=== PATIENT | male | born 1965 | race Caucasian/White ===

== ENCOUNTER 2018-07-27 09:09 | Inpatient (IN) | payer BC ==
[2018-07-27] MEDS ORDERED: NALOXONE 0.4 MG/ML 1 ML VIAL IV PRN ×2 (10:07→15:20)
[2018-07-27] MEDS ORDERED: ONDANSETRON 4 MG/2 ML VIAL IVP PRN ×2 (10:07→15:20)
[2018-07-27] MEDS ORDERED: SODIUM CHLORIDE 0.9% 1,000 ML IV ONE ×2 (10:07→15:20)
--- NOTE | 2018-07-27 11:16 | XR ---
EXAMINATION TYPE: XR chest 2V DATE OF EXAM: 07/27/2018 COMPARISON: None HISTORY: 52 year-old male shortness of breath TECHNIQUE: PA and lateral views FINDINGS: Heart mildly enlarged. Aorta within normal limits. Diffuse interstitial and peribronchial opacities. No consolidation or pleural effusion. IMPRESSION: 1. Cardiomegaly. 2. Diffuse interstitial changes. Further clinical correlation recommended as to etiology. Some differ ential considerations include mild pulmonary vascular congestion (though no pleural effusions are pre sent), bronchitis, chronic asthma, atypical pneumonias, and interstitial pneumonitis.
[2018-07-27 11:24] LABS: ALT 62 U/L (21-72); AST 38 U/L (17-59); Albumin 3.3 g/dL (3.5-5.0); Alkaline Phosphatase 77 U/L (38-126); Anion Gap 2 mmol/L; Blood Urea Nitrogen 17 mg/dL (9-20); Calcium 9.1 mg/dL (8.4-10.2); Carbon Dioxide 36 mmol/L (22-30); Chloride 99 mmol/L (98-107); Glucose 67 mg/dL (74-99); Potassium 4.9 mmol/L (3.5-5.1); Sodium 137 mmol/L (137-145); Total Bilirubin 1.1 mg/dL (0.2-1.3)
[2018-07-27 11:41] LABS: Anisocytosis Slight; Basophils % (A) 0 %; Eosinophils # (A) 0.1 k/uL (0-0.7); Eosinophils % (A) 1 %; HGB 18.2 gm/dL (13.0-17.5); Hypochromasia Marked; Lymphocytes # (A) 1.3 k/uL (1.0-4.8); Lymphocytes % (A) 17 %; MCH 30.2 pg (25.0-35.0); MCHC 29.9 g/dL (31.0-37.0); MCV 100.9 fL (80.0-100.0); Macrocytosis Slight; Monocytes # (A) 0.6 k/uL (0-1.0); Monocytes % (A) 8 %; Neutrophils # (A) 5.8 k/uL (1.3-7.7); Neutrophils % (A) 73 %; Platelet Count 141 k/uL (150-450); RBC 6.01 m/uL (4.30-5.90); RDW 16.1 % (11.5-15.5); WBC 7.9 k/uL (3.8-10.6)
[2018-07-27 11:45] LABS: HCT 60.7 % (39.0-53.0)
--- NOTE | 2018-07-27 11:50 | ED ---
General Adult HPI <FredDioni - Last Filed: 07/27/18 15:11> - General Source: patient, family, RN notes reviewed Mode of arrival: wheelchair Limitations: no limitations <Hipolito Eastman - Last Filed: 07/27/18 15:23> - General Chief complaint: Abdominal Pain Stated complaint: Abd Pain Time Seen by Provider: 07/27/18 09:48 - History of Present Illness Initial comments: Patient 52-year-old male presented to the emergency room today with a chief complaint of increased abdominal pain. Patient does admit that over the last 3 weeks she's had increased pain and discomfort to the lower abdomen. Patient states that he's had increased swelling. He thought there was a hernia and feels that the swelling has dropped lower in the abdomen. Patient states is relatively pain-free. He does admit to some discomfort as did have certain positions. Patient does admit that he follow-up this family doctor today was advised coming here to the emergency room. Patient does admit to some chronic shortness of breath. States this is not new for him. He does admit to being a daily smoker. States been trying to quit. Patient denies any other complaints. Patient denies any recent fever, chills, chest pain, back pain, nausea or vomiting, numbness or tingling, dysuria or hematuria, constipation or diarrhea, headaches or visual changes, or any other complaints. (Hipolito Eastman) - Related Data Home Medications Medication Instructions Recorded Confirmed Albuterol Sulfate [Proair Hfa] 2 puff INHALATION RT-Q6H 07/27/18 07/27/18 Naproxen Sodium [Aleve] 220 mg PO DAILY 07/27/18 07/27/18 Phentermine HCl [Adipex-P] 37.5 mg PO DAILY 07/27/18 07/27/18 Triamterene-Hctz 37.5-25Mg 1 tab PO DAILY 07/27/18 07/27/18 [Maxzide 37.5-25] buPROPion HCL [buPROPion HCL SR] 150 mg PO DAILY 07/27/18 07/27/18 Allergies Allergy/AdvReac Type Severity Reaction Status Date / Time sulfamethoxazole Allergy Rash/Hives Verified 07/27/18 10:09 [From Bactrim] trimethoprim [From Bactrim] Allergy Rash/Hives Verified 07/27/18 10:09 venom-honey bee AdvReac Swelling Verified 07/27/18 10:09 Review of Systems ROS Other: All systems not noted in ROS Statement are negative. <IbarraDioni - Last Filed: 07/27/18 15:11> ROS Other: All systems not noted in ROS Statement are negative. <Hipolito Eastman - Last Filed: 07/27/18 15:23> ROS Statement: Those systems with pertinent positive or pertinent negative responses have been documented in the HPI. Past Medical History Past Medical History: Asthma History of Any Multi-Drug Resistant Organisms: None Reported Past Surgical History: Hernia Repair, Tonsillectomy Additional Past Surgical History / Comment(s): Partial Bowel Rsection Past Psychological History: No Psychological Hx Reported Smoking Status: Current every day smoker Past Alcohol Use History: None Reported Past Drug Use History: None Reported <Hipolito Eastman - Last Filed: 07/27/18 15:23> General Exam <Dioni Ibarra - Last Filed: 07/27/18 15:11> Limitations: no limitations <Hipolito Eastman - Last Filed: 07/27/18 15:23> - General Exam Comments Initial Comments: General: The patient is awake and alert, in no distress, and does not appear acutely ill. Eye: There is normal conjunctiva bilaterally. No signs of icterus. Ears, nose, mouth and throat: There are moist mucous membranes and no oral lesions. Neck: The neck is supple, there is no tenderness or JVD. Cardiovascular: There is a regular rate and rhythm. No murmur, rub or gallop is appreciated. Respiratory: Lungs are clear to auscultation, respirations are non-labored, breath sounds are equal. No wheezes, stridor, rales, or rhonchi. Gastrointestinal: Abdomen soft on palpation. No specific tenderness. No rebound, guarding or CVA tenderness. Musculoskeletal: Normal ROM, no tenderness. Neurological: A&O x 3. CN II-XII intact, There are no obvious motor or sensory deficits. Coordination appears grossly intact. Speech is normal. Skin: Skin is warm and dry and no rashes or lesions are noted. Psychiatric: Cooperative, appropriate mood & affect, normal judgment. (Hipolito Eastman) Vital Signs 07/27/18 07/27/18 07/27/18 09:19 11:00 11:30 Temperature 98.6 F Pulse Rate 109 H 104 H 87 Respiratory 20 7 L 20 Rate Blood Pressure 160/66 116/75 116/75 O2 Sat by Pulse 94 L 89 L 90 L Oximetry 07/27/18 07/27/18 07/27/18 12:34 13:00 14:00 Temperature 98.2 F Pulse Rate 99 Respiratory 20 22 Rate Blood Pressure 109/63 O2 Sat by Pulse 93 L 93 L 93 L Oximetry EKG Findings - EKG Comments: EKG Findings:: EKG performed at 1046: Shows normal sinus rhythm at 100 bpm. IL interval 154. QRS 126. QT/QTC 368/474. No acute ST changes. <Hipolito Eastman - Last Filed: 07/27/18 15:23> Medical Decision Making - Lab Data Result diagrams: 07/27/18 10:55 07/27/18 10:55 <Dioni Ibarra - Last Filed: 07/27/18 15:11> - Lab Data Result diagrams: 07/27/18 10:55 07/27/18 10:55 <Hipolito Eastman - Last Filed: 07/27/18 15:23> - Medical Decision Making Case was discussed with Dr. Rodríguez, who will admit covering for Dr. barone. He does request Doppler ultrasound and VQ scan as well as surgical consult Dr. Alfonso. (Dioni Ibarra) Patient's a 52-year-old male presented to the emergency room today with chief complaint of increased abdominal discomfort. Patient labs reviewed. He did admit to some shortness of breath and did have pulse ox here in the emergency room at 89%. Patient was placed on oxygen. Patient has a history of COPD. Patient's d-dimer was elevated. CT to rule out PE was performed. No large PE can be seen but could not exclude something smaller. Patient's CT the abdomen and pelvis is reviewed and shows a large wall hernia consisting of the small colon in partial large colon. No evidence for obstruction. There is diffuse anasarca. Patient had a BNP greater than 1000. Patient abdomen is soft nontender. Is resting comfortably. Case discussed with attending physician Dr. Ibarra who did discuss with admitting physician Dr. Rodríguez who does recommend bilateral Doppler ultrasound and VQ scan. Surgeon on-call will be consult patient admitted to the hospital. (Hipolito Eastman) - Lab Data Lab Results 07/27/18 07/27/18 07/27/18 Range/Units 10:55 10:55 10:55 WBC 7.9 (3.8-10.6) k/uL RBC 6.01 H (4.30-5.90) m/uL Hgb 18.2 H (13.0-17.5) gm/dL Hct 60.7 H* (39.0-53.0) % MCV 100.9 H (80.0-100.0) fL MCH 30.2 (25.0-35.0) pg MCHC 29.9 L (31.0-37.0) g/dL RDW 16.1 H (11.5-15.5) % Plt Count 141 L (150-450) k/uL Neutrophils % 73 % Lymphocytes % 17 % Monocytes % 8 % Eosinophils % 1 % Basophils % 0 % Neutrophils # 5.8 (1.3-7.7) k/uL Lymphocytes # 1.3 (1.0-4.8) k/uL Monocytes # 0.6 (0-1.0) k/uL Eosinophils # 0.1 (0-0.7) k/uL Basophils # 0.0 (0-0.2) k/uL Hypochromasia Marked Anisocytosis Slight Macrocytosis Slight PT (9.0-12.0) sec INR (<1.2) APTT (22.0-30.0) sec D-Dimer (<0.60) mg/L FEU Sodium 137 (137-145) mmol/L Potassium 4.9 (3.5-5.1) mmol/L Chloride 99 (98-107) mmol/L Carbon Dioxide 36 H (22-30) mmol/L Anion Gap 2 mmol/L BUN 17 (9-20) mg/dL Creatinine 0.72 (0.66-1.25) mg/dL Est GFR (CKD-EPI)AfAm >90 (>60 ml/min/1.73 sqM) Est GFR (CKD-EPI)NonAf >90 (>60 ml/min/1.73 sqM) Glucose 67 L (74-99) mg/dL Calcium 9.1 (8.4-10.2) mg/dL Total Bilirubin 1.1 (0.2-1.3) mg/dL AST 38 (17-59) U/L ALT 62 (21-72) U/L Alkaline Phosphatase 77 (38-126) U/L Total Creatine Kinase 54 L (55-170) U/L CK-MB (CK-2) 2.2 (0.0-2.4) ng/mL CK-MB (CK-2) Rel Index 4.1 Troponin I 0.012 (0.000-0.034) ng/mL NT-Pro-B Natriuret Pep pg/mL Total Protein 6.0 L (6.3-8.2) g/dL Albumin 3.3 L (3.5-5.0) g/dL 07/27/18 07/27/18 Range/Units 10:55 12:02 WBC (3.8-10.6) k/uL RBC (4.30-5.90) m/uL Hgb (13.0-17.5) gm/dL Hct (39.0-53.0) % MCV (80.0-100.0) fL MCH (25.0-35.0) pg MCHC (31.0-37.0) g/dL RDW (11.5-15.5) % Plt Count (150-450) k/uL Neutrophils % % Lymphocytes % % Monocytes % % Eosinophils % % Basophils % % Neutrophils # (1.3-7.7) k/uL Lymphocytes # (1.0-4.8) k/uL Monocytes # (0-1.0) k/uL Eosinophils # (0-0.7) k/uL Basophils # (0-0.2) k/uL Hypochromasia Anisocytosis Macrocytosis PT 11.1 (9.0-12.0) sec INR 1.1 (<1.2) APTT 25.1 (22.0-30.0) sec D-Dimer 0.76 H (<0.60) mg/L FEU Sodium (137-145) mmol/L Potassium (3.5-5.1) mmol/L Chloride (98-107) mmol/L Carbon Dioxide (22-30) mmol/L Anion Gap mmol/L BUN (9-20) mg/dL Creatinine (0.66-1.25) mg/dL Est GFR (CKD-EPI)AfAm (>60 ml/min/1.73 sqM) Est GFR (CKD-EPI)NonAf (>60 ml/min/1.73 sqM) Glucose (74-99) mg/dL Calcium (8.4-10.2) mg/dL Total Bilirubin (0.2-1.3) mg/dL AST (17-59) U/L ALT (21-72) U/L Alkaline Phosphatase (38-126) U/L Total Creatine Kinase (55-170) U/L CK-MB (CK-2) (0.0-2.4) ng/mL CK-MB (CK-2) Rel Index Troponin I (0.000-0.034) ng/mL NT-Pro-B Natriuret Pep 1040 pg/mL Total Protein (6.3-8.2) g/dL Albumin (3.5-5.0) g/dL Disposition <Dioni Ibarra - Last Filed: 07/27/18 15:11> Is patient prescribed a controlled substance at d/c from ED?: No Time of Disposition: 15:17 <Hipolito Eastman - Last Filed: 07/27/18 15:23> Clinical Impression: Abdominal wall hernia, Elevated brain natriuretic peptide (BNP) level, Anasarca , SOB (shortness of breath), Hypoxia Disposition: ADMITTED IP TO THIS HOSP Condition: Stable Referrals: Junaid Dubon MD [Primary Care Provider] - 1-2 days
[2018-07-27 12:03] LABS: Creatine Kinase MB 2.2 ng/mL (0.0-2.4); Troponin I 0.012 ng/mL (0.000-0.034)
[2018-07-27 12:57] LABS: INR 1.1 (<1.2)
[2018-07-27 13:26] LABS: Partial Thromboplastin Time 25.1 sec (22.0-30.0); Prothrombin Time 11.1 sec (9.0-12.0)
[2018-07-27 13:27] LABS: D-Dimer 0.76 mg/L FEU (<0.60)
--- NOTE | 2018-07-27 14:20 | CT ---
EXAMINATION TYPE: CT angio chest DATE OF EXAM: 07/27/2018 COMPARISON: None HISTORY: 52-year-old male with SOB TECHNIQUE: Contiguous axial scanning of the chest performed with IV Contrast, patient injected with 1 00 mL of Isovue 370. Coronal/sagittal MIP reconstructions performed. CT DLP: 890.7 mGycm Automated exposure control for dose reduction was used. FINDINGS: Heart borderline enlarged without pericardial effusion. Coronary vessel calcifications are present. T here is no flattening of the interventricular septum or reflux of contrast into the hepatic veins. Aorta normal caliber with conventional arch vessel branching anatomy. Mildly enlarged 1.5 cm right hilar lymph node and mildly enlarged 1.3 cm left hilar lymph node. Proba nickolas reactive/post inflammatory. Mildly enlarged caliber to the main right and left pulmonary arteries at 2.6 cm each suggesting possi ble pulmonary arterial hypertension. There is excessive motion artifacts at some levels limiting assessment for pulmonary embolus. No larg e central or lobar pulmonary embolus. No definite pulmonary embolus to the proximal segmental level. Many of the remaining segmental and more distal arterial branches are nondiagnostic. Prominent paraseptal and centrilobular emphysema throughout the lungs. Dependent atelectasis at the l loly bases demonstrate areas of scarring or atelectasis Abdomen reported separately. Bones: Endplate spondylosis mid to lower thoracic spine. IMPRESSION: 1. SOME RESPIRATORY MOTION ARTIFACT LIMITING ASSESSMENT. NO DEFINITE PULMONARY EMBOLUS TO THE PROXIMA L SEGMENTAL LEVEL. MANY OF THE REMAINING SEGMENTAL AND MORE DISTAL ARTERIAL BRANCHES ARE NONDIAGNOSTI C AND EMBOLI IN THESE LOCATIONS CANNOT BE RELIABLY EXCLUDED ON THE BASIS OF THIS EXAM. 2. CARDIOMEGALY, CAD. 3. COPD WITH BOTH CENTRILOBULAR AND PARASEPTAL EMPHYSEMA, MODERATE TO ADVANCED. PULMONARY ARTERIAL HY PERTENSION. 4. ABDOMEN REPORTED SEPARATELY.
--- NOTE | 2018-07-27 14:50 | CT ---
EXAMINATION TYPE: CT abdomen pelvis w con DATE OF EXAM: 07/27/2018 COMPARISON: 01/02/2011 HISTORY: 52-year-old male Hernia, SOB TECHNIQUE: Contiguous axial scanning of the abdomen and pelvis following administration of 100 ml Iso sheri 370 IV contrast. Coronal/sagittal reconstructions performed. Large patient body habitus overload ed and shut down the tube. CT DLP: 2556.0 mGycm Automated exposure control for dose reduction was used. FINDINGS: Heart upper limits of normal in size. Strandy atelectasis in the lower lungs. There are emphysematous changes noted. There is diffuse heterogeneous enhancement of the liver suggesting diffuse nonspecific hepatocellular disease. Mild perihepatic ascites is noted. The liver itself measures upper limits of normal at 17.0 cm. Portal venous system is patent Mild hydropic gallbladder and 4.4 cm. There may be mild wall thickening as well. Adrenal glands, kidneys, spleen, and pancreas appear within normal limits. No dilated small bowel, free fluid, or free air. Anasarca type changes present throughout the subcuta neous tissues and intra-abdominal fat. Redemonstrated massive ventral abdominal wall hernia. The hernia measures 13.4 cm wide and 14.0 cm craniocaudal with the hernia contents containing nearly the entire small bowel and its mesentery. The hernia also includes the distal third transverse colon. The main transverse colon comes back into the intra-abdominal cavity but then the ascending colon ag ain extends into there are hernia. This shows marked intervertebral enlargement as compared to 2010. The majority of the hernia sac is not evaluated as it is outside of the field of view. Bladder partially distended. No abnormal fluid collection the pelvis. No pelvic lymphadenopathy seen. Strandy edema within the pelvis. Bones: Degenerative changes of the hips and throughout the lumbar spine. IMPRESSION: 1. MASSIVE VENTRAL ABDOMINAL WALL HERNIA WITH THE NECK OF THE HERNIA MEASURING 13.4 X 14.0 CM. NEARLY THE ENTIRE SMALL BOWEL AND ITS MESENTERY HAS HERNIATED THROUGH WELL THE RIGHT SIDE OF THE COLO N AND THE DISTAL TRANSVERSE COLON. THE HERNIA IS SO LARGE THAT IT EXTENDS OUTSIDE THE FIELD OF VIEW A ND ONLY A SMALL PORTION OF IT IS VISUALIZED. 2. DIFFUSE ANASARCA TYPE CHANGES SUGGESTED. NO EVIDENCE FOR BOWEL OBSTRUCTION. NO FREE AIR WITHIN THE INTRA-ABDOMINAL SPACE. 3. DIFFUSE HEPATOCELLULAR DISEASE CHARACTERIZED BY DIFFUSE HETEROGENEOUS ENHANCEMENT. FURTHER CLINICA L CORRELATION RECOMMENDED SUCH FOR HEPATITIS. 4. HYDROPIC GALLBLADDER. THERE MAY BE MILD WALL THICKENING WELL. THIS COULD BE SECONDARY TO FASTIN G AND FLUID OVERLOAD STATE. IF CONCERN FOR EARLY ACUTE CHOLECYSTITIS, FOLLOW-UP ULTRASOUND OR UNIQUE JUSTICE.
[2018-07-27] MEDS ORDERED: IPRATROPIUM-ALBUTEROL 3 ML NEB INHALATION PRN (15:19)
--- NOTE | 2018-07-27 16:36 | US ---
EXAMINATION TYPE: US venous doppler duplex LE DATE OF EXAM: 07/27/2018 4:22 PM COMPARISON: NONE CLINICAL HISTORY: 52-year-old male Pain. Morbidly obese patient with leg swelling, upper thigh rash SIDE PERFORMED: Bilat TECHNIQUE: The lower extremity deep venous system is examined utilizing real time linear array sonog jerry with graded compression, doppler sonography and color-flow sonography. FINDINGS: VESSELS IMAGED: External Iliac Vein (EIV) Common Femoral Vein Deep Femoral Vein Greater Saphenous Vein * Femoral Vein Popliteal Vein Small Saphenous Vein * Proximal Calf Veins (* superficial vessels) [employer] [place] notes:very firm pannus that extends to mid thighs, unable to get underneath, limited ex am Right Leg: From mid fv down through calf veins appears negative for DVT Left Leg: From mid fv down through calf veins appears negative for DVT IMPRESSION: Large patient pannus precludes assessment of the upper thighs. No evidence for DVT within the bilater al lower extremities imaged from the mid femoral veins down into the upper calf. The proximal thighs are not assessed.
[2018-07-27 17:12] VITALS: BMI 54.5
[2018-07-27] MEDS ORDERED: ALBUTEROL NEBULIZED 2.5 MG/3 ML INHALATION SCH (20:00)
[2018-07-28] MEDS: methylPREDNISolone SOD SUCCI 40 MG/ML 1 ML VIAL IV SCH ×3 (01:28→17:05)
--- NOTE | 2018-07-28 02:35 | HP ---
HISTORY AND PHYSICAL DATE OF ADMISSION: July 27, 2018 DATE OF SERVICE: July 27, 2018. PRESENTING COMPLAINT: Short of breath. Large abdomen. HISTORY OF PRESENTING COMPLAINT: This is a 52-year-old patient who follows with Dr. Dubon out of [place]. The patient has a history of asthma, long-standing smoker, abdominal wall hernia. The patient's abdominal wall hernia has been progressively getting worse to the point it is becoming extremely large, like a pannus to the mid thighs. Finding it difficult for patient to get about. The patient still actively works. The patient also long- standing smoker, he gets short of breath, congestion, cough, bringing up sputum, mucus. The patient also got edema. No chest pain. Sitting at the edge of bed, rather short of breath. The patient saw his family doctor who sent him in for his hernia. The patient has no abdominal pain. No nausea, vomiting, able to tolerate his diet. The patient states he has a little bit less control of his anal sphincter. REVIEW OF SYSTEMS: CONSTITUTIONAL: Tired. HEENT: Nasal stuffiness. RESPIRATORY: As above. CARDIOVASCULAR: As above. GASTROINTESTINAL: As above. GENITOURINARY none. MUSCULOSKELETAL: Arthritic pain in the joints. DERMATOLOGICAL: Some discoloration of the toes. HEMATOLOGICAL: None. LYMPHATICS: None. PSYCHIATRIC: None. NEUROLOGICAL: None. PAST MEDICAL HISTORY: Asthma. PAST SURGICAL HISTORY: Hernia repair, tonsillectomy, partial small-bowel resection. SOCIAL HISTORY: Lives with daughter, son. 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 No alcohol. Smoked an average of a pack and a half last 35 years, now trying to cut back. FAMILY HISTORY: Reviewed, noncontributory to presentation. HOME MEDICATIONS: 1. Wellbutrin SR 150 mg a day. 2. Maxzide 37.5/25 1 tablet p.o. daily. 3. Adipex-P 37.5 p.o. daily. 4. Aleve 220 mg p.o. daily. 5. ProAir HFA 2 puffs q.6h p.r.n. ALLERGIES: TO BACTRIM, VENOM HONEY BEE. PHYSICAL EXAMINATION: VITAL SIGNS: On examination, vital signs on presentation temperature 98.6, pulse 109, respiration 20, blood pressure 160/56, pulse ox 94 percent on room air. GENERAL APPEARANCE: Morbidly obese, BMI 54.5. Sitting at the edge of bed. Short of breath at rest. EYES: Pupils equal. Conjunctivae normal. HEENT external appearance of nose and ears normal. Oral cavity normal. NECK: JVD unable to assess. Mass not palpable. RESPIRATORY: Effort increased. LUNGS: Diminished breath sounds. Prolonged expiration and wheezing. CARDIOVASCULAR: Heart sounds muffled. Edema present. ABDOMEN: Very large, distended, pendulous with abdominal wall edema. Some scar tissue is present. Scarring is present. Liver and spleen not palpable. LYMPHATICS: No lymph nodes palpable in the neck and axilla. PSYCHIATRY: Alert and oriented x3. Mood and affect normal. NEUROLOGICAL: Pupils equal. Cranial nerves grossly intact. Power and sensation grossly intact. INVESTIGATIONS: White count 7.9, hemoglobin 8.2, platelets 141, potassium 4.9, BUN 17, creatinine 0.72. ProBNP 1040. Troponin 0.012. Venous Doppler negative for DVT. EKG tracing personally reviewed by me shows some nonspecific ST-segment changes. Chest CTA shows enlarged prominent pulmonary arteries and evidence of centrilobular emphysema. Abdominal pelvis CT shows some evidence of hepatocellular disease, massive ventral abdominal hernia with the neck of the hernia nearly 14 x 14 cm with entire small bowel in his mesentery herniated through the wall, diffuse anasarca type changes, hydrops gallbladder. ASSESSMENT: 1. Acute chronic obstructive pulmonary disease exacerbation in a current smoker. 2. Chronic nicotine dependence. Patient is a long-standing cigarette smoker. 3. Morbid obesity, BMI 54.5. 4. Very large ventral abdominal hernia with the large mouth with no evidence of obstruction which patient has neglected for a long time time. 5. Possible cor pulmonale, acute on chronic. 6. Secondary polycythemia, likely from chronic hypoxia in the setting of longstanding cigarette smoker. PLAN: Patient is started on q4 nebulized bronchodilators, IV and inhaled steroids. We will check the patient's arterial blood gases on room air. Oxygen will be supplemented accordingly. We will also do a 2D echocardiogram today to evaluate pulmonary hypertension. Consultation will be made to Dr. Alfonso and Pulmonary. Care was discussed with the patient at length. Smoking cessation was counseling and patient will be given a nicotine patch. More than 3 minutes was spent on this aspect of the case. Given patient's poor functional status right now and of course patient abdominal ventral hernia extremely large, we may have to wait for a while before any surgery can be thought of. We will let the surgeon make the final determination about the same. Care was discussed in length with the patient. Copy to Eliseo Krause. MMODL / IJN: [id number] /
[2018-07-28] MEDS: IPRATROPIUM-ALBUTEROL 3 ML NEB INHALATION SCH ×5 (03:20→19:10)
[2018-07-28 07:49] LABS: Glucose,Whole Blood 112 mg/dL (75-99)
[2018-07-28] MEDS: BUDESONIDE 1 MG/2 ML NEBU INHALATION SCH ×2 (07:54→19:09)
[2018-07-28 08:03] LABS: Basophils % (A) 0 %; Eosinophils % (A) 1 %; Hypochromasia Marked; Lymphocytes # (A) 0.6 k/uL (1.0-4.8); Lymphocytes % (A) 9 %; MCH 30.1 pg (25.0-35.0); MCHC 29.1 g/dL (31.0-37.0); MCV 103.5 fL (80.0-100.0); Macrocytosis Moderate; Mean Platelet Volume 7.7; Monocytes # (A) 0.2 k/uL (0-1.0); Monocytes % (A) 3 %; Neutrophils # (A) 5.7 k/uL (1.3-7.7); Neutrophils % (A) 86 %; Platelet Count 120 k/uL (150-450); RDW 15.9 % (11.5-15.5); WBC 6.6 k/uL (3.8-10.6)
[2018-07-28] MEDS: buPROPion SR 150 MG TABLET.ER PO SCH (08:05)
[2018-07-28] MEDS: INSULIN ASPART (NovoLOG) 100 UNIT/ML VIAL SQ SCH ×4 (08:05→20:52)
[2018-07-28] MEDS: ENOXAPARIN 40 MG/0.4 ML SYRINGE SQ SCH (08:06)
[2018-07-28] MEDS: NICOTINE 14MG/24HR PATCH TRANSDERM SCH (08:06)
[2018-07-28 08:07] LABS: HCT 65.2 % (39.0-53.0)
[2018-07-28] MEDS: PATIENT'S OWN MED (Phentermine Hcl [Adipex-P] 37.5 MG) PO SCH (08:07)
[2018-07-28] MEDS ORDERED: FUROSEMIDE 10 MG/ML 4 ML VIAL IV SCH (09:00)
[2018-07-28] MEDS ORDERED: TRIAMTERENE-HCTZ 37.5-25MG 1 EACH TAB PO SCH (09:00)
[2018-07-28 10:10] LABS: ALT 67 U/L (21-72); AST 37 U/L (17-59); Albumin 3.6 g/dL (3.5-5.0); Alkaline Phosphatase 94 U/L (38-126); Anion Gap 5 mmol/L; Blood Urea Nitrogen 17 mg/dL (9-20); Calcium 9.7 mg/dL (8.4-10.2); Carbon Dioxide 36 mmol/L (22-30); Chloride 97 mmol/L (98-107); Glucose 159 mg/dL (74-99); Potassium 5.8 mmol/L (3.5-5.1); Sodium 138 mmol/L (137-145); Total Bilirubin 1.4 mg/dL (0.2-1.3); Total Protein 6.5 g/dL (6.3-8.2)
--- NOTE | 2018-07-28 11:27 | NM ---
EXAMINATION TYPE: NM pul vent and perfuse DATE OF EXAM: 07/28/2018 COMPARISON: NONE HISTORY: Shortness of breath TECHNIQUE: Utilizing inhalation of 67.8 mCi Tc 99m DTPA aerosol and intravenous injection of 5.17 mC i of Tc 99m MAA, ventilation and perfusion images are acquired post injection in multiple projections . FINDINGS: Noted are few matched ventilation/perfusion defects. Central accumulation of radiotracer on ventilati on portion of the study compatible with COPD. No perfusion mismatch. IMPRESSION: Low probability for pulmonary embolism.
[2018-07-28 11:36] LABS: Glucose,Whole Blood 134 mg/dL (75-99)
--- NOTE | 2018-07-28 13:05 | P.GSCN ---
History of Present Illness Consult date: 07/28/18 Reason for Consult: Abdominal wall hernia History of present illness: CHIEF COMPLAINT: SOB HISTORY OF PRESENT ILLNESS: 52-year-old male who presented to the emergency room due to shortness of breath and increased swelling. General surgery was consulted for abdominal wall hernia. Patient was found to have a massive ventral abdominal wall hernia. Patient states he has had this for many years but it has slowly increased in size. He currently denies abdominal pain. He does complain of discomfort due to the size of his abdomen resting on his legs. Denies nausea or vomiting. Denies constipation or diarrhea. PAST MEDICAL HISTORY: See list. PAST SURGICAL HISTORY: See list. MEDICATIONS: See list. ALLERGIES: See list. SOCIAL HISTORY: No illicit drug use. REVIEW OF SYSTEMS: CONSTITUTIONAL: Denies fever or chills. HEENT: Denies blurred vision, vision changes, or eye pain. Denies hemoptysis ENDOCRINE: Denies heat or cold intolerance. CARDIOVASCULAR: Denies chest pain or pressure. RESPIRATORY: Reports shortness of breath. GASTROINTESTINAL: Denies abdominal pain. Denies nausea or vomiting. NEURO: Denies history of seizures. PSYCH: No depression or suicidal ideation HEMATOLOGIC: Denies bleeding disorders. LYMPHATIC: The patient denies any lumps and bumps around the neck. GENITOURINARY: Denies any blood in urine or increased urinary frequency. MUSCULOSKELETAL: Denies myalgias. Denies joint swelling. Denies decreased range of motion beyond patients baseline. SKIN: Denies pruitis. Denies rash. PHYSICAL EXAM: VITAL SIGNS: Currently stable. GENERAL: Well-developed in no acute distress. HEENT: No sclera icterus. Extraocular movements grossly intact. Moist buccal mucosa. Head is atraumatic, normocephalic. Hears conversational speech. No nasal drainage. NECK: Supple without lymphadenopathy. CHEST: Non-labored respirations and equal bilateral excursions. CARDIOVASCULAR: Regular rate with regular rhythm. Palpable 2+ radial pulses. ABDOMEN: Obese. Massive abdominal wall hernia present. No pain on palpation. MUSCULOSKELETAL: No clubbing, cyanosis or edema. NEUROLOGIC: No focal or lateralizing signs. Cranial nerves II through XII grossly intact. PSYCH: Appropriate affect. Alert and oriented to person, place and time. SKIN: Well perfused. Good skin turgor. IMAGING: CT abdomen and pelvis: Massive ventral abdominal wall hernia with the neck of the hernia measuring 13.4 x 14 cm. The entire small bowel and its mesentery has herniated through as well as the right side of the colon and distal transverse colon. The hernia so large it extends outside the field of view and only has a small portion of the visualized. ASSESSMENT: 1. Massive ventral abdominal wall hernia PLAN: Patient is currently stable from a surgical standpoint. Patient will require evaluation at a tertiary center for repair of hernia when medically stable. Patient advised no surgical intervention will be performed at this facility. Nurse practitioner note has been reviewed by physician. Signing provider agrees with the documented findings, assessment, and plan of care. Past Medical History Past Medical History: Asthma History of Any Multi-Drug Resistant Organisms: None Reported Past Surgical History: Hernia Repair, Tonsillectomy Additional Past Surgical History / Comment(s): Partial Bowel Rsection Past Psychological History: No Psychological Hx Reported Smoking Status: Current every day smoker Past Alcohol Use History: None Reported Past Drug Use History: None Reported Medications and Allergies Home Medications Medication Instructions Recorded Confirmed Type Albuterol Sulfate [Proair Hfa] 2 puff INHALATION RT-Q6H 07/27/18 07/27/18 History Naproxen Sodium [Aleve] 220 mg PO DAILY 07/27/18 07/27/18 History Phentermine HCl [Adipex-P] 37.5 mg PO DAILY 07/27/18 07/27/18 History Triamterene-Hctz 37.5-25Mg 1 tab PO DAILY 07/27/18 07/27/18 History [Maxzide 37.5-25] buPROPion HCL [buPROPion HCL SR] 150 mg PO DAILY 07/27/18 07/27/18 History Allergies Allergy/AdvReac Type Severity Reaction Status Date / Time sulfamethoxazole Allergy Rash/Hives Verified 07/27/18 10:09 [From Bactrim] trimethoprim [From Bactrim] Allergy Rash/Hives Verified 07/27/18 10:09 venom-honey bee AdvReac Swelling Verified 07/27/18 10:09 Surgical - Exam Vital Signs Temp Pulse Resp BP Pulse Ox 98.6 F 109 H 20 160/66 94 L 07/27/18 09:19 07/27/18 09:19 07/27/18 09:19 07/27/18 09:19 07/27/18 09:19 Results - Labs 07/28/18 06:21 07/28/18 09:08 Abnormal Lab Results - Last 24 Hours (Table) 07/27/18 07/28/18 07/28/18 Range/Units 12:02 06:21 07:47 RBC 6.30 H (4.30-5.90) m/uL Hgb 19.0 H (13.0-17.5) gm/dL Hct 65.2 H* (39.0-53.0) % MCV 103.5 H (80.0-100.0) fL MCHC 29.1 L (31.0-37.0) g/dL RDW 15.9 H (11.5-15.5) % Plt Count 120 L (150-450) k/uL Lymphocytes # 0.6 L (1.0-4.8) k/uL D-Dimer 0.76 H (<0.60) mg/L FEU Potassium (3.5-5.1) mmol/L Chloride (98-107) mmol/L Carbon Dioxide (22-30) mmol/L Glucose (74-99) mg/dL POC Glucose (mg/dL) 112 H (75-99) mg/dL Total Bilirubin (0.2-1.3) mg/dL 07/28/18 07/28/18 Range/Units 09:08 11:29 RBC (4.30-5.90) m/uL Hgb (13.0-17.5) gm/dL Hct (39.0-53.0) % MCV (80.0-100.0) fL MCHC (31.0-37.0) g/dL RDW (11.5-15.5) % Plt Count (150-450) k/uL Lymphocytes # (1.0-4.8) k/uL D-Dimer (<0.60) mg/L FEU Potassium 5.8 H (3.5-5.1) mmol/L Chloride 97 L (98-107) mmol/L Carbon Dioxide 36 H (22-30) mmol/L Glucose 159 H (74-99) mg/dL POC Glucose (mg/dL) 134 H (75-99) mg/dL Total Bilirubin 1.4 H (0.2-1.3) mg/dL Diabetes panel 07/28/18 Range/Units 09:08 Sodium 138 (137-145) mmol/L Potassium 5.8 H (3.5-5.1) mmol/L Chloride 97 L (98-107) mmol/L Carbon Dioxide 36 H (22-30) mmol/L BUN 17 (9-20) mg/dL Creatinine 0.78 (0.66-1.25) mg/dL Glucose 159 H (74-99) mg/dL Calcium 9.7 (8.4-10.2) mg/dL AST 37 (17-59) U/L ALT 67 (21-72) U/L Alkaline Phosphatase 94 (38-126) U/L Total Protein 6.5 (6.3-8.2) g/dL Albumin 3.6 (3.5-5.0) g/dL Calcium panel 07/28/18 Range/Units 09:08 Calcium 9.7 (8.4-10.2) mg/dL Albumin 3.6 (3.5-5.0) g/dL Pituitary panel 07/28/18 Range/Units 09:08 Sodium 138 (137-145) mmol/L Potassium 5.8 H (3.5-5.1) mmol/L Chloride 97 L (98-107) mmol/L Carbon Dioxide 36 H (22-30) mmol/L BUN 17 (9-20) mg/dL Creatinine 0.78 (0.66-1.25) mg/dL Glucose 159 H (74-99) mg/dL Calcium 9.7 (8.4-10.2) mg/dL Adrenal panel 07/28/18 Range/Units 09:08 Sodium 138 (137-145) mmol/L Potassium 5.8 H (3.5-5.1) mmol/L Chloride 97 L (98-107) mmol/L Carbon Dioxide 36 H (22-30) mmol/L BUN 17 (9-20) mg/dL Creatinine 0.78 (0.66-1.25) mg/dL Glucose 159 H (74-99) mg/dL Calcium 9.7 (8.4-10.2) mg/dL Total Bilirubin 1.4 H (0.2-1.3) mg/dL AST 37 (17-59) U/L ALT 67 (21-72) U/L Alkaline Phosphatase 94 (38-126) U/L Total Protein 6.5 (6.3-8.2) g/dL Albumin 3.6 (3.5-5.0) g/dL
[2018-07-28 13:50] LABS: ABG Base Excess 14.1 mmol/L; ABG HCO3 39 mmol/L (21-25); ABG Oxygen Saturation 89.8 % (94-97); ABG PCO2 67 mmHg (35-45); ABG PH 7.38 (7.35-7.45); ABG TCO2 41 mmol/L (19-24)
[2018-07-28 13:51] LABS: ABG PO2 54 mmHg (83-108)
[2018-07-28 16:52] LABS: Glucose,Whole Blood 134 mg/dL (75-99)
--- NOTE | 2018-07-28 17:49 | P.CNPUL ---
History of Present Illness Consult date: 07/28/18 Reason for consult: dyspnea, cough, COPD, hypoxemia, pulmonary hypertension, obstructive sleep apnea Chief complaint: Shortness of breath History of present illness: 52-year-old morbidly obese male who was seen eval reexamined on fourth floor with ongoing problems associated with shortness of breath patient has a very large anterior abdominal wall ventral hernia, surgery has been following this patient, this patient has a significant issues associated with erythrocytosis hypoxia and the sleepiness likely has sleep disorder breathing and sleep apnea does have a history of snoring patient has ongoing tremors intermittent confusion as well, review of the data revealed that patient has a hypoxic hypercapnic respiratory failure with CO2 of 67 pH was normal pO2 was only 54 on 4 L oxygen, white cell count is normal however hemoglobin is on the higher range of 19 and 65 hematocrit likely associated with bone marrow stimulation related chronic hypoxia, I have discussed with the staff to initiate patient on BiPAP 10 and 5 with supplemental oxygen to be used each night and when necessary during the day, his admitted chest x-ray revealed cardiomegaly interstitial edema and prominent interstitium, computed tomography scan of the abdomen revealed massive ventral hernia neck of the hernia is about 14 cm, Antara small bowel and mesentery has a herniated, with some portion of the colon , diffuse anasarca has been noted, no bowel obstruction or free air has been noted, some hepatocellular changes in the liver has been noted, and large gallbladder, computed tomography scan of the chest revealed pulmonary vasculature prominence likely pulmonary hypertension, centrilobular and paraseptal emphysema is noted, cardiomegaly has been noted along with evidence of coronary artery disease, no pulmonary embolism seen duplex ultrasound of the lower extremity both are negative for deep venous thrombosis, VQ scan revealed low probability for PE Review of Systems All systems: negative Past Medical History Past Medical History: Asthma History of Any Multi-Drug Resistant Organisms: None Reported Past Surgical History: Hernia Repair, Tonsillectomy Additional Past Surgical History / Comment(s): Partial Bowel Rsection Past Psychological History: No Psychological Hx Reported Smoking Status: Current every day smoker Past Alcohol Use History: None Reported Past Drug Use History: None Reported Medications and Allergies Home Medications Medication Instructions Recorded Confirmed Type Albuterol Sulfate [Proair Hfa] 2 puff INHALATION RT-Q6H 07/27/18 07/27/18 History Naproxen Sodium [Aleve] 220 mg PO DAILY 07/27/18 07/27/18 History Phentermine HCl [Adipex-P] 37.5 mg PO DAILY 07/27/18 07/27/18 History Triamterene-Hctz 37.5-25Mg 1 tab PO DAILY 07/27/18 07/27/18 History [Maxzide 37.5-25] buPROPion HCL [buPROPion HCL SR] 150 mg PO DAILY 07/27/18 07/27/18 History Allergies Allergy/AdvReac Type Severity Reaction Status Date / Time sulfamethoxazole Allergy Rash/Hives Verified 07/27/18 10:09 [From Bactrim] trimethoprim [From Bactrim] Allergy Rash/Hives Verified 07/27/18 10:09 venom-honey bee AdvReac Swelling Verified 07/27/18 10:09 Physical Exam Vitals: Vital Signs Temp Pulse Pulse Resp BP Pulse Ox 07/28/18 15:34 98 07/28/18 15:22 100 94 L 07/28/18 15:00 98.4 F 106 H 18 128/70 91 L 07/28/18 12:25 104 H 18 07/28/18 12:15 101 H 18 07/28/18 08:09 104 H 07/28/18 07:55 108 H 20 90 L 07/28/18 07:10 20 07/28/18 07:00 98.5 F 110 H 18 126/68 90 L 07/28/18 03:30 108 H 07/28/18 03:20 110 H 07/27/18 23:00 98.1 F 106 H 18 119/82 93 L 07/27/18 21:20 93 L 07/27/18 19:55 93 L 07/27/18 19:40 112 H 90 L 07/27/18 19:33 98.4 F 112 H 18 110/59 70 L 07/27/18 18:11 17 Intake and Output 07/28/18 07/28/18 07/28/18 06:59 14:59 22:59 Output Total 3 Balance -3 Output: Stool 3 Other: # Voids 1 - Constitutional General appearance: morbidly obese - EENT Eyes: EOMI, PERRLA, poor dentition, scleral icterus, normal appearance Ears: bilateral: normal - Neck Neck: normal ROM Carotids: bilateral: upstroke normal, bruit absent Thyroid: bilateral: normal size - Respiratory Respiratory: bilateral: CTA, diminished (Very poor air entry), rales (Few basal crackles cannot be excluded), negative: dullness, rhonchi, wheezing, prolonged expiration - Cardiovascular Rhythm: regular Heart sounds: normal: S1, S2 - Gastrointestinal Very large ventral hernia General gastrointestinal: decreased bowel sounds, distended, normal bowel sounds - Integumentary Integumentary: normal turgor - Neurologic Neurologic: CNII-XII intact - Musculoskeletal Musculoskeletal: gait normal, generalized weakness, strength equal bilaterally - Psychiatric Psychiatric: A&O x's 3, appropriate affect, intact judgment & insight Results - Laboratory Findings CBC and BMP: 07/28/18 06:21 07/28/18 09:08 ABG ABG pH 7.38 (7.35-7.45) 07/28/18 13:46 ABG pCO2 67 mmHg (35-45) H 07/28/18 13:46 ABG pO2 54 mmHg (83-108) L* 07/28/18 13:46 ABG O2 Saturation 89.8 % (94-97) L 07/28/18 13:46 PT/INR, D-dimer PT 11.1 sec (9.0-12.0) 07/27/18 12:02 INR 1.1 (<1.2) 07/27/18 12:02 D-Dimer 0.76 mg/L FEU (<0.60) H 07/27/18 12:02 Abnormal lab findings: Abnormal Labs 07/27/18 07/27/18 07/27/18 10:55 10:55 10:55 RBC 6.01 H Hgb 18.2 H Hct 60.7 H* MCV 100.9 H MCHC 29.9 L RDW 16.1 H Plt Count 141 L Lymphocytes # D-Dimer ABG pCO2 ABG pO2 ABG HCO3 ABG Total CO2 ABG O2 Saturation Potassium Chloride Carbon Dioxide 36 H Glucose 67 L POC Glucose (mg/dL) Total Bilirubin Total Creatine Kinase 54 L Total Protein 6.0 L Albumin 3.3 L 07/27/18 07/28/18 07/28/18 12:02 06:21 07:47 RBC 6.30 H Hgb 19.0 H Hct 65.2 H* MCV 103.5 H MCHC 29.1 L RDW 15.9 H Plt Count 120 L Lymphocytes # 0.6 L D-Dimer 0.76 H ABG pCO2 ABG pO2 ABG HCO3 ABG Total CO2 ABG O2 Saturation Potassium Chloride Carbon Dioxide Glucose POC Glucose (mg/dL) 112 H Total Bilirubin Total Creatine Kinase Total Protein Albumin 07/28/18 07/28/18 07/28/18 09:08 11:29 13:46 RBC Hgb Hct MCV MCHC RDW Plt Count Lymphocytes # D-Dimer ABG pCO2 67 H ABG pO2 54 L* ABG HCO3 39 H ABG Total CO2 41 H ABG O2 Saturation 89.8 L Potassium 5.8 H Chloride 97 L Carbon Dioxide 36 H Glucose 159 H POC Glucose (mg/dL) 134 H Total Bilirubin 1.4 H Total Creatine Kinase Total Protein Albumin 07/28/18 16:47 RBC Hgb Hct MCV MCHC RDW Plt Count Lymphocytes # D-Dimer ABG pCO2 ABG pO2 ABG HCO3 ABG Total CO2 ABG O2 Saturation Potassium Chloride Carbon Dioxide Glucose POC Glucose (mg/dL) 134 H Total Bilirubin Total Creatine Kinase Total Protein Albumin - Diagnostic Findings Chest x-ray: report reviewed, image reviewed (Finding as noted in HPI) CT scan - chest: report reviewed, image reviewed U/S of Legs: report reviewed, image reviewed Assessment and Plan Assessment: Acute on chronic hypoxic and hypercapnic failure Severe hypercapnia and tremors Pulmonary hypertension Severe COPD Obstructive sleep apnea Large ventral hernia 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
[2018-07-28] MEDS ORDERED: SODIUM POLYSTYRENE SULFONATE 15 GM/60 ML BOTTLE PO STA (18:53)
--- NOTE | 2018-07-28 18:55 | P.PN ---
Subjective 52-year-old morbidly obese and is being treated for COPD exacerbation ventral hernia although no surgery is being planned patient, patient does have ischemia right third fourth and fifth toes with moderate cyanosis. Patient has decreased pulses in that area. Patient is requiring 4 L of onset doesn't use any oxygen at home. Constitutional: Denied any fatigue denied any fever. Cardio vascular: denied any chest pain, palpitations Gastrointestinal denied any nausea vomiting Pulmonary: Does have shortness of breath Neurologic denied any new focal deficits All inpatient medications were reviewed and appropriate changes in these medications as dictated in the interval history and assessment and plan. Objective - Vital Signs Vital signs: Vital Signs Temp 98.4 F 07/28/18 15:00 Pulse 98 07/28/18 15:34 Resp 18 07/28/18 15:00 BP 128/70 07/28/18 15:00 Pulse Ox 94 L 07/28/18 15:22 Intake & Output 07/27/18 07/28/18 07/28/18 18:59 06:59 18:59 Output Total 3 Balance -3 Weight 172.365 kg Output: Stool 3 Other: # Voids 1 - Exam PHYSICAL EXAMINATION: GENERAL: The patient is alert and oriented x3, not in any acute distress. Morbidly obese HEENT: Pupils are round and equally reacting to light. EOMI. No scleral icterus. No conjunctival pallor. Normocephalic, atraumatic. No pharyngeal erythema. No thyromegaly. CARDIOVASCULAR: S1 and S2 present. No murmurs, rubs, or gallops. PULMONARY: Expiratory wheezing on exam ABDOMEN: Stented significant ventral hernia MUSCULOSKELETAL: No joint swelling or deformity. EXTREMITIES: No clubbing, or pedal edema. Cyanosis as mentioned above NEUROLOGICAL: Gross neurological examination did not reveal any focal deficits. SKIN: No rashes. - Labs CBC & Chem 7: 07/28/18 06:21 07/28/18 09:08 Labs: Abnormal Lab Results - Last 24 Hours (Table) 07/28/18 07/28/18 07/28/18 Range/Units 06:21 07:47 09:08 RBC 6.30 H (4.30-5.90) m/uL Hgb 19.0 H (13.0-17.5) gm/dL Hct 65.2 H* (39.0-53.0) % MCV 103.5 H (80.0-100.0) fL MCHC 29.1 L (31.0-37.0) g/dL RDW 15.9 H (11.5-15.5) % Plt Count 120 L (150-450) k/uL Lymphocytes # 0.6 L (1.0-4.8) k/uL ABG pCO2 (35-45) mmHg ABG pO2 (83-108) mmHg ABG HCO3 (21-25) mmol/L ABG Total CO2 (19-24) mmol/L ABG O2 Saturation (94-97) % Potassium 5.8 H (3.5-5.1) mmol/L Chloride 97 L (98-107) mmol/L Carbon Dioxide 36 H (22-30) mmol/L Glucose 159 H (74-99) mg/dL POC Glucose (mg/dL) 112 H (75-99) mg/dL Total Bilirubin 1.4 H (0.2-1.3) mg/dL 07/28/18 07/28/18 07/28/18 Range/Units 11:29 13:46 16:47 RBC (4.30-5.90) m/uL Hgb (13.0-17.5) gm/dL Hct (39.0-53.0) % MCV (80.0-100.0) fL MCHC (31.0-37.0) g/dL RDW (11.5-15.5) % Plt Count (150-450) k/uL Lymphocytes # (1.0-4.8) k/uL ABG pCO2 67 H (35-45) mmHg ABG pO2 54 L* (83-108) mmHg ABG HCO3 39 H (21-25) mmol/L ABG Total CO2 41 H (19-24) mmol/L ABG O2 Saturation 89.8 L (94-97) % Potassium (3.5-5.1) mmol/L Chloride (98-107) mmol/L Carbon Dioxide (22-30) mmol/L Glucose (74-99) mg/dL POC Glucose (mg/dL) 134 H 134 H (75-99) mg/dL Total Bilirubin (0.2-1.3) mg/dL Assessment and Plan Plan: -Acute hypercapnic respiratory failure: Secondary to COPD exacerbation patient is on systemic steroids inhalational treatments which will be continued -Peripheral Vascular disease vascular surgery was consulted -Ventral hernia: Further management as per general surgery -Hyperkalemia due to acute renal failure diuretic therapy will be held echocardiogram is awaiting repeat the potassium levels tomorrow if they're still elevated will use capsulate -Continued nicotine use: Counseling was provided patient is trying to quit smoking -Morbid obesity with possible right-sided heart failure, cor pulmonale and pulmonary hypertension and possibility of sleep apnea
[2018-07-28 19:13] LABS: Glucose,Whole Blood 147 mg/dL (75-99)
--- NOTE | 2018-07-28 20:30 | ECHOF ---
Referral Reason:assess LV function MEASUREMENTS -------- HEIGHT: 177.8 cm WEIGHT: 172.4 kg BP: 119/82 IVSd: 1.2 cm (0.6 - 1.1) LVIDd: 5.2 cm (3.9 - 5.3) LVPWd: 1.2 cm (0.6 - 1.1) IVSs: 1.4 cm LVIDs: 4.3 cm LVPWs: 1.4 cm RVIDd: 4.0 cm (< 3.3) LAESV Index (A-L): 17.90 ml/m Ao Diam: 3.0 cm (2.0 - 3.7) LA Diam: 4.0 cm (2.7 - 3.8) AV Cusp: 2.2 cm (1.5 - 2.6) EPSS: 1.5 cm MV E [place]: 1.00 m/s MV DecT: 160 ms MV A [place]: 1.14 m/s MV E/A Ratio: 0.88 RAP: 15.00 mmHg RVSP: 46.01 mmHg MV EF SLOPE: 61.04 mm/s (70 - 150) MV EXCURSION: 1.92 cm (> 18.000) FINDINGS -------- Resting tachycardia (HR>100bpm). This was a technically difficult study with suboptimal views. The left ventricular size is normal. There is mild concentric left ventricular hypertrophy. There is moderate global hypokinesis of LV . Overall left ventricular systolic function is moderate-kenrick rely impaired with, an EF between 30 - 35 %. The right ventricle is moderately enlarged. Normal LA size by volume 22+/-6 ml/m2. The right atrium was not well visualized. 4 ml of Lumason was utilized for enhancement of images. There is mild aortic valve sclerosis. There is no evidence of aortic regurgitation. There is no e vidence of aortic stenosis. The mitral valve leaflets are mildly thickened. There is trace to mild mitral regurgitation. Trace tricuspid regurgitation present. There is mild pulmonary hypertension. The right ventricula r systolic pressure, as measured by Doppler, is 46.01mmHg. The pulmonic valve was not well visualized. The aortic root size is normal. The inferior vena cava is dilated with no significant inspiratory collapse which is consistent estima dior right atrial pressure of >20 mmHg. There is no pericardial effusion. CONCLUSIONS -------- 1. Resting tachycardia (HR>100bpm). 2. This was a technically difficult study with suboptimal views. 3. The left ventricular size is normal. 4. There is mild concentric left ventricular hypertrophy. 5. There is moderate global hypokinesis of LV . 6. Overall left ventricular systolic function is moderate-severely impaired with, an EF between 30 - 35 %. 7. The right ventricle is moderately enlarged. 8. Normal LA size by volume 22+/-6 ml/m2. 9. The right atrium was not well visualized. 10. 4 ml of Lumason was utilized for enhancement of images. 11. There is mild aortic valve sclerosis. 12. The mitral valve leaflets are mildly thickened. 13. There is trace to mild mitral regurgitation. 14. Trace tricuspid regurgitation present. 15. There is mild pulmonary hypertension. 16. The right ventricular systolic pressure, as measured by Doppler, is 46.01mmHg. 17. The pulmonic valve was not well visualized. 18. The aortic root size is normal. 19. The inferior vena cava is dilated with no significant inspiratory collapse which is consistent es timated right atrial pressure of >20 mmHg. 20. There is no pericardial effusion. [employer]ER DRIER OPERATOR: Mihir Ontiveros RDCS
[2018-07-29] MEDS: methylPREDNISolone SOD SUCCI 40 MG/ML 1 ML VIAL IV SCH ×2 (00:23→10:14)
[2018-07-29] MEDS: IPRATROPIUM-ALBUTEROL 3 ML NEB INHALATION SCH ×6 (01:06→18:59)
[2018-07-29 07:03] LABS: Glucose,Whole Blood 119 mg/dL (75-99)
[2018-07-29 07:20] LABS: HGB 17.5 gm/dL (13.0-17.5); Hypochromasia Marked; MCH 30.8 pg (25.0-35.0); MCHC 30.1 g/dL (31.0-37.0); MCV 102.4 fL (80.0-100.0); Macrocytosis Slight; Mean Platelet Volume 7.7; Platelet Count 131 k/uL (150-450); RBC 5.69 m/uL (4.30-5.90); RDW 15.5 % (11.5-15.5); WBC 10.2 k/uL (3.8-10.6)
[2018-07-29 07:44] LABS: HCT 58.2 % (39.0-53.0)
[2018-07-29] MEDS: BUDESONIDE 1 MG/2 ML NEBU INHALATION SCH ×2 (08:11→18:59)
--- NOTE | 2018-07-29 08:25 | P.PN ---
Subjective Progress Note Date: 07/29/18 Principal diagnosis: Hypercapnic hypoxic respiratory failure, altered mental status, tremors likely related to high CO2 level, severe morbid obesity, obesity hypoventilation, likely sleep disorder breathing and sleep apnea, hypertension hypertensive cardiovascular disease, and large ventral hernia 07/29/2018, patient seen eval examined during the rounds clinically patient has been doing slightly better tremors have improved, patient has been on BiPAP throughout the night tolerated for almost 6 hours breathing more comfortably currently undergoing a back bronchodilator therapy, patient has been eval by surgical services further recommendations pending 52-year-old morbidly obese male who was seen eval reexamined on fourth floor with ongoing problems associated with shortness of breath patient has a very large anterior abdominal wall ventral hernia, surgery has been following this patient, this patient has a significant issues associated with erythrocytosis hypoxia and the sleepiness likely has sleep disorder breathing and sleep apnea does have a history of snoring patient has ongoing tremors intermittent confusion as well, review of the data revealed that patient has a hypoxic hypercapnic respiratory failure with CO2 of 67 pH was normal pO2 was only 54 on 4 L oxygen, white cell count is normal however hemoglobin is on the higher range of 19 and 65 hematocrit likely associated with bone marrow stimulation related chronic hypoxia, I have discussed with the staff to initiate patient on BiPAP 10 and 5 with supplemental oxygen to be used each night and when necessary during the day, his admitted chest x-ray revealed cardiomegaly interstitial edema and prominent interstitium, computed tomography scan of the abdomen revealed massive ventral hernia neck of the hernia is about 14 cm, Antara small bowel and mesentery has a herniated, with some portion of the colon , diffuse anasarca has been noted, no bowel obstruction or free air has been noted, some hepatocellular changes in the liver has been noted, and large gallbladder, computed tomography scan of the chest revealed pulmonary vasculature prominence likely pulmonary hypertension, centrilobular and paraseptal emphysema is noted, cardiomegaly has been noted along with evidence of coronary artery disease, no pulmonary embolism seen duplex ultrasound of the lower extremity both are negative for deep venous thrombosis, VQ scan revealed low probability for PE Objective - Vital Signs Vital signs: Vital Signs Temp 98.5 F 07/29/18 07:00 Pulse 84 07/29/18 08:12 Resp 20 07/29/18 07:00 BP 121/65 07/29/18 07:00 Pulse Ox 93 L 07/29/18 07:00 Intake & Output 07/28/18 07/29/18 07/29/18 18:59 06:59 18:59 Output Total 3 Balance -3 Output: Stool 3 Other: Voiding Method Toilet # Voids 1 - Exam - Constitutional General appearance: morbidly obese - EENT Eyes: EOMI, PERRLA, poor dentition, scleral icterus, normal appearance Ears: bilateral: normal - Neck Neck: normal ROM Carotids: bilateral: upstroke normal, bruit absent Thyroid: bilateral: normal size - Respiratory Respiratory: bilateral: CTA, diminished (Very poor air entry), rales (Few basal crackles cannot be excluded), negative: dullness, rhonchi, wheezing, prolonged expiration - Cardiovascular Rhythm: regular Heart sounds: normal: S1, S2 - Gastrointestinal Very large ventral hernia General gastrointestinal: decreased bowel sounds, distended, normal bowel sounds - Integumentary Integumentary: normal turgor - Neurologic Neurologic: CNII-XII intact - Musculoskeletal Musculoskeletal: gait normal, generalized weakness, strength equal bilaterally - Psychiatric Psychiatric: A&O x's 3, appropriate affect, intact judgment & insight - Labs CBC & Chem 7: 07/29/18 06:26 07/28/18 09:08 Labs: Abnormal Lab Results - Last 24 Hours (Table) 07/28/18 07/28/18 07/28/18 Range/Units 06:21 09:08 11:29 RBC 6.30 H (4.30-5.90) m/uL Hgb 19.0 H (13.0-17.5) gm/dL Hct 65.2 H* (39.0-53.0) % MCV 103.5 H (80.0-100.0) fL MCHC 29.1 L (31.0-37.0) g/dL RDW 15.9 H (11.5-15.5) % Plt Count 120 L (150-450) k/uL Lymphocytes # 0.6 L (1.0-4.8) k/uL ABG pCO2 (35-45) mmHg ABG pO2 (83-108) mmHg ABG HCO3 (21-25) mmol/L ABG Total CO2 (19-24) mmol/L ABG O2 Saturation (94-97) % Potassium 5.8 H (3.5-5.1) mmol/L Chloride 97 L (98-107) mmol/L Carbon Dioxide 36 H (22-30) mmol/L Glucose 159 H (74-99) mg/dL POC Glucose (mg/dL) 134 H (75-99) mg/dL Total Bilirubin 1.4 H (0.2-1.3) mg/dL 07/28/18 07/28/18 07/28/18 Range/Units 13:46 16:47 19:11 RBC (4.30-5.90) m/uL Hgb (13.0-17.5) gm/dL Hct (39.0-53.0) % MCV (80.0-100.0) fL MCHC (31.0-37.0) g/dL RDW (11.5-15.5) % Plt Count (150-450) k/uL Lymphocytes # (1.0-4.8) k/uL ABG pCO2 67 H (35-45) mmHg ABG pO2 54 L* (83-108) mmHg ABG HCO3 39 H (21-25) mmol/L ABG Total CO2 41 H (19-24) mmol/L ABG O2 Saturation 89.8 L (94-97) % Potassium (3.5-5.1) mmol/L Chloride (98-107) mmol/L Carbon Dioxide (22-30) mmol/L Glucose (74-99) mg/dL POC Glucose (mg/dL) 134 H 147 H (75-99) mg/dL Total Bilirubin (0.2-1.3) mg/dL 07/29/18 07/29/18 Range/Units 06:26 07:01 RBC (4.30-5.90) m/uL Hgb (13.0-17.5) gm/dL Hct 58.2 H* (39.0-53.0) % MCV 102.4 H (80.0-100.0) fL MCHC 30.1 L (31.0-37.0) g/dL RDW (11.5-15.5) % Plt Count 131 L (150-450) k/uL Lymphocytes # (1.0-4.8) k/uL ABG pCO2 (35-45) mmHg ABG pO2 (83-108) mmHg ABG HCO3 (21-25) mmol/L ABG Total CO2 (19-24) mmol/L ABG O2 Saturation (94-97) % Potassium (3.5-5.1) mmol/L Chloride (98-107) mmol/L Carbon Dioxide (22-30) mmol/L Glucose (74-99) mg/dL POC Glucose (mg/dL) 119 H (75-99) mg/dL Total Bilirubin (0.2-1.3) mg/dL Assessment and Plan Assessment: Acute on chronic hypoxic and hypercapnic failure Severe hypercapnia and tremors Pulmonary hypertension Severe COPD Obstructive sleep apnea Likely component of obesity hypoventilation syndrome Large ventral hernia 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
[2018-07-29 08:26] LABS: Blood Urea Nitrogen 20 mg/dL (9-20); Calcium 9.5 mg/dL (8.4-10.2); Chloride 94 mmol/L (98-107); Glucose 174 mg/dL (74-99); Potassium 4.9 mmol/L (3.5-5.1); Sodium 139 mmol/L (137-145)
[2018-07-29 08:32] LABS: Anion Gap 4 mmol/L
[2018-07-29 08:33] LABS: Carbon Dioxide 41 mmol/L (22-30)
[2018-07-29] MEDS: INSULIN ASPART (NovoLOG) 100 UNIT/ML VIAL SQ SCH ×4 (08:44→21:30)
[2018-07-29] MEDS: PATIENT'S OWN MED (Phentermine Hcl [Adipex-P] 37.5 MG) PO SCH (08:46)
[2018-07-29] MEDS: ENOXAPARIN 40 MG/0.4 ML SYRINGE SQ SCH (10:15)
[2018-07-29] MEDS: NICOTINE 14MG/24HR PATCH TRANSDERM SCH (10:15)
[2018-07-29] MEDS: buPROPion SR 150 MG TABLET.ER PO SCH (10:15)
[2018-07-29 11:56] LABS: Glucose,Whole Blood 72 mg/dL (75-99)
--- NOTE | 2018-07-29 13:56 | CDI ---
Documentation Clarification Form Date: 07/29/2018 1:14:41 PM From: Fatmata Monson RN, CCDS Admit Date: 07/29/2018 11:45:00 AM Patient Name: Mohit Coto Visit Number: [id number] ATTENTION: The Clinical Documentation Specialists (CDI) and [facility] Coding Staff appreciate your assistance in clarifying documentation. Please respond to the clarification below the line at the bottom and electronically sign. The CDI & [facility] Coding staff will review the response and follow-up if needed. Please note: Queries are made part of the Legal Health Record. If you have any questions, please contact the author of this message via ITS. Dr. Federico Hernandez Altered Mental Status was documented in the pulmonary progress note and requires further specificity. History/Risk Factors: COPD, Chronic smoker, morbid obesity, a/c cor pulmonale, Clinical Indicators: 07/28 & 07/29 Pulmonary Progress Notes: " this patient has a significant issues associated with erythrocytosis hypoxia and the sleepiness likely has sleep disorder breathing and sleep apnea does have a history of snoring patient has ongoing tremors intermittent confusion as well, review of the data revealed that patient has a hypoxic hypercapnic respiratory failure with CO2 of 67 pH was normal pO2 was only 54 on 4 L oxygen, white cell count is normal however hemoglobin is on the higher range of 19 and 65 hematocrit likely associated with bone marrow stimulation related chronic hypoxia, I have discussed with the staff to initiate patient on BiPap 10 and 5 with supplemental oxygen to be used. " Labs: CO2 36/41 CXR: Cardiomegly, mild pulmonary vascular congestion CTA Chest: Cardiomegly, CAD, Copd, Advanced Emphysema, PAH Treatment: IVF Updrafts BiPap In your professional opinion, please clarify the etiology of the Altered Mental Status, if known. Encephalopathy (specify Type- Metabolic, Anoxic, Toxic, Etc. and Underlying Medical Illness) Other condition (please specify) Unable to determine (Last Revision: September 2017) MTDD
--- NOTE | 2018-07-29 14:19 | P.PN ---
Subjective Progress Note Date: 07/29/18 CHIEF COMPLAINT: SOB HISTORY OF PRESENT ILLNESS: 52-year-old male who presented to the emergency room due to shortness of breath and increased swelling. Patient was found to have a massive ventral abdominal wall hernia. Patient currently denies pain or discomfort. Passing flatus. Denies nausea or vomiting. PHYSICAL EXAM: VITAL SIGNS: Currently stable. GENERAL: Well-developed in no acute distress. HEENT: No sclera icterus. Extraocular movements grossly intact. Moist buccal mucosa. Head is atraumatic, normocephalic. Hears conversational speech. No nasal drainage. NECK: Supple without lymphadenopathy. CHEST: Non-labored respirations and equal bilateral excursions. CARDIOVASCULAR: Regular rate with regular rhythm. Palpable 2+ radial pulses. ABDOMEN: Obese. Massive abdominal wall hernia present. No pain on palpation. MUSCULOSKELETAL: No clubbing, cyanosis or edema. NEUROLOGIC: No focal or lateralizing signs. Cranial nerves II through XII grossly intact. PSYCH: Appropriate affect. Alert and oriented to person, place and time. SKIN: Well perfused. Good skin turgor. IMAGING: CT abdomen and pelvis: Massive ventral abdominal wall hernia with the neck of the hernia measuring 13.4 x 14 cm. The entire small bowel and its mesentery has herniated through as well as the right side of the colon and distal transverse colon. The hernia so large it extends outside the field of view and only has a small portion of the visualized. ASSESSMENT: 1. Massive ventral abdominal wall hernia with loss of domain PLAN: Patient is currently stable from a surgical standpoint. Patient will require evaluation at a tertiary center for repair of hernia when medically stable. Patient advised no surgical intervention will be performed at this facility. Nurse practitioner note has been reviewed by physician. Signing provider agrees with the documented findings, assessment, and plan of care. Objective - Vital Signs Vital signs: Vital Signs Temp 98.5 F 07/29/18 07:00 Pulse 92 07/29/18 12:11 Resp 20 07/29/18 07:00 BP 121/65 07/29/18 07:00 Pulse Ox 93 L 07/29/18 07:00 Intake & Output 07/28/18 07/29/18 07/29/18 18:59 06:59 18:59 Output Total 3 Balance -3 Output: Stool 3 Other: Voiding Method Toilet # Voids 1 - Labs CBC & Chem 7: 07/29/18 06:26 07/29/18 07:45 Labs: Abnormal Lab Results - Last 24 Hours (Table) 07/28/18 07/28/18 07/29/18 Range/Units 16:47 19:11 06:26 Hct 58.2 H* (39.0-53.0) % MCV 102.4 H (80.0-100.0) fL MCHC 30.1 L (31.0-37.0) g/dL Plt Count 131 L (150-450) k/uL Chloride (98-107) mmol/L Carbon Dioxide (22-30) mmol/L Glucose (74-99) mg/dL POC Glucose (mg/dL) 134 H 147 H (75-99) mg/dL 07/29/18 07/29/18 07/29/18 Range/Units 07:01 07:45 11:54 Hct (39.0-53.0) % MCV (80.0-100.0) fL MCHC (31.0-37.0) g/dL Plt Count (150-450) k/uL Chloride 94 L (98-107) mmol/L Carbon Dioxide 41 H* (22-30) mmol/L Glucose 174 H (74-99) mg/dL POC Glucose (mg/dL) 119 H 72 L (75-99) mg/dL
--- NOTE | 2018-07-29 15:26 | P.PN ---
Subjective 52-year-old morbidly obese and is being treated for COPD exacerbation ventral hernia although no surgery is being planned patient, patient does have ischemia right third fourth and fifth toes with moderate cyanosis. Patient has decreased pulses in that area. Patient is requiring 4 L of onset doesn't use any oxygen at home. 07/29/2018 Patient was pretty status improved patient wheezing improved remains on 4 L will taper tapered down steroids was switched to oral Constitutional: Denied any fatigue denied any fever. Cardio vascular: denied any chest pain, palpitations Gastrointestinal denied any nausea vomiting Pulmonary: Does have shortness of breath Neurologic denied any new focal deficits All inpatient medications were reviewed and appropriate changes in these medications as dictated in the interval history and assessment and plan. Objective - Vital Signs Vital signs: Vital Signs Temp 98.4 F 07/29/18 14:00 Pulse 92 07/29/18 15:17 Resp 20 07/29/18 07:00 BP 168/61 07/29/18 14:00 Pulse Ox 92 L 07/29/18 14:00 Intake & Output 07/28/18 07/29/18 07/29/18 18:59 06:59 18:59 Output Total 3 Balance -3 Output: Stool 3 Other: Voiding Method Toilet # Voids 1 - Exam PHYSICAL EXAMINATION: GENERAL: The patient is alert and oriented x3, not in any acute distress. Morbidly obese HEENT: Pupils are round and equally reacting to light. EOMI. No scleral icterus. No conjunctival pallor. Normocephalic, atraumatic. No pharyngeal erythema. No thyromegaly. CARDIOVASCULAR: S1 and S2 present. No murmurs, rubs, or gallops. PULMONARy :improved expiratory wheezing on exam ABDOMEN: Stented significant ventral hernia MUSCULOSKELETAL: No joint swelling or deformity. EXTREMITIES: No clubbing, or pedal edema. Cyanosis as mentioned above NEUROLOGICAL: Gross neurological examination did not reveal any focal deficits. SKIN: No rashes. - Labs CBC & Chem 7: 07/29/18 06:26 07/29/18 07:45 Labs: Abnormal Lab Results - Last 24 Hours (Table) 07/28/18 07/28/18 07/29/18 Range/Units 16:47 19:11 06:26 Hct 58.2 H* (39.0-53.0) % MCV 102.4 H (80.0-100.0) fL MCHC 30.1 L (31.0-37.0) g/dL Plt Count 131 L (150-450) k/uL Chloride (98-107) mmol/L Carbon Dioxide (22-30) mmol/L Glucose (74-99) mg/dL POC Glucose (mg/dL) 134 H 147 H (75-99) mg/dL 07/29/18 07/29/18 07/29/18 Range/Units 07:01 07:45 11:54 Hct (39.0-53.0) % MCV (80.0-100.0) fL MCHC (31.0-37.0) g/dL Plt Count (150-450) k/uL Chloride 94 L (98-107) mmol/L Carbon Dioxide 41 H* (22-30) mmol/L Glucose 174 H (74-99) mg/dL POC Glucose (mg/dL) 119 H 72 L (75-99) mg/dL Assessment and Plan Plan: -Acute hypercapnic respiratory failure: Secondary to COPD exacerbation patient is on systemic steroids inhalational treatments which will be continued -Peripheral Vascular disease vascular surgery was consulted -Ventral hernia: Further management as per general surgery -Hyperkalemia due to acute renal failure diuretic therapy will be held echocardiogram is awaiting repeat the potassium levels tomorrow if they're still elevated will use capsulate -Continued nicotine use: Counseling was provided patient is trying to quit smoking -Morbid obesity with possible right-sided heart failure, cor pulmonale and pulmonary hypertension and possibility of sleep apnea
[2018-07-29 16:38] LABS: Glucose,Whole Blood 142 mg/dL (75-99)
[2018-07-29 20:34] LABS: Glucose,Whole Blood 114 mg/dL (75-99)
[2018-07-30] MEDS: IPRATROPIUM-ALBUTEROL 3 ML NEB INHALATION SCH ×7 (00:35→23:44)
[2018-07-30 07:08] LABS: Glucose,Whole Blood 85 mg/dL (75-99)
[2018-07-30 08:00] LABS: HGB 17.4 gm/dL (13.0-17.5); Hypochromasia Marked; MCH 29.4 pg (25.0-35.0); MCV 104.8 fL (80.0-100.0); Macrocytosis Moderate; Mean Platelet Volume 7.8; Platelet Count 102 k/uL (150-450); RBC 5.92 m/uL (4.30-5.90); RDW 15.5 % (11.5-15.5); WBC 10.2 k/uL (3.8-10.6)
[2018-07-30 08:05] LABS: HCT 62.1 % (39.0-53.0)
[2018-07-30 08:10] LABS: Anion Gap 4 mmol/L; Blood Urea Nitrogen 21 mg/dL (9-20); Calcium 9.8 mg/dL (8.4-10.2); Carbon Dioxide 39 mmol/L (22-30); Chloride 97 mmol/L (98-107); Glucose 90 mg/dL (74-99); Potassium 4.4 mmol/L (3.5-5.1); Sodium 140 mmol/L (137-145)
[2018-07-30] MEDS: BUDESONIDE 1 MG/2 ML NEBU INHALATION SCH ×2 (08:29→19:53)
[2018-07-30] MEDS: INSULIN ASPART (NovoLOG) 100 UNIT/ML VIAL SQ SCH ×4 (09:21→20:55)
[2018-07-30] MEDS: PATIENT'S OWN MED (Phentermine Hcl [Adipex-P] 37.5 MG) PO SCH (09:22)
[2018-07-30] MEDS ORDERED: DOCUSATE 100 MG CAP PO PRN (09:32)
[2018-07-30] MEDS: ENOXAPARIN 40 MG/0.4 ML SYRINGE SQ SCH (09:36)
[2018-07-30] MEDS: buPROPion SR 150 MG TABLET.ER PO SCH (09:37)
[2018-07-30] MEDS: NICOTINE 14MG/24HR PATCH TRANSDERM SCH (09:37)
[2018-07-30] MEDS: predniSONE 20 MG TAB PO SCH (09:37)
[2018-07-30 11:27] LABS: Glucose,Whole Blood 109 mg/dL (75-99)
--- NOTE | 2018-07-30 15:23 | P.PN ---
Subjective Progress Note Date: 07/30/18 Principal diagnosis: Hypercapnic hypoxic respiratory failure, altered mental status, tremors likely related to high CO2 level, severe morbid obesity, obesity hypoventilation, likely sleep disorder breathing and sleep apnea, hypertension hypertensive cardiovascular disease, and large ventral hernia 07/30/2018, patient seen eval examined during the rounds clinically patient has been doing slightly better tremors have been noted to have improved patient has been using BiPAP machine each night and when necessary during the day, surgical services evaluating this patient, at this point time patient likely is being considered for supportive and conservative care with optimize aeration of medical therapy weight loss more optimal treatment for his sleep disorder breathing and sleep apnea and severe COPD and then reconsideration of surgery subsequently, urine medications reviewed care plan discussed with the staff as well as case assembler at length 07/29/2018, patient seen eval examined during the rounds clinically patient has been doing slightly better tremors have improved, patient has been on BiPAP throughout the night tolerated for almost 6 hours breathing more comfortably currently undergoing a back bronchodilator therapy, patient has been eval by surgical services further recommendations pending 52-year-old morbidly obese male who was seen eval reexamined on fourth floor with ongoing problems associated with shortness of breath patient has a very large anterior abdominal wall ventral hernia, surgery has been following this patient, this patient has a significant issues associated with erythrocytosis hypoxia and the sleepiness likely has sleep disorder breathing and sleep apnea does have a history of snoring patient has ongoing tremors intermittent confusion as well, review of the data revealed that patient has a hypoxic hypercapnic respiratory failure with CO2 of 67 pH was normal pO2 was only 54 on 4 L oxygen, white cell count is normal however hemoglobin is on the higher range of 19 and 65 hematocrit likely associated with bone marrow stimulation related chronic hypoxia, I have discussed with the staff to initiate patient on BiPAP 10 and 5 with supplemental oxygen to be used each night and when necessary during the day, his admitted chest x-ray revealed cardiomegaly interstitial edema and prominent interstitium, computed tomography scan of the abdomen revealed massive ventral hernia neck of the hernia is about 14 cm, Antara small bowel and mesentery has a herniated, with some portion of the colon , diffuse anasarca has been noted, no bowel obstruction or free air has been noted, some hepatocellular changes in the liver has been noted, and large gallbladder, computed tomography scan of the chest revealed pulmonary vasculature prominence likely pulmonary hypertension, centrilobular and paraseptal emphysema is noted, cardiomegaly has been noted along with evidence of coronary artery disease, no pulmonary embolism seen duplex ultrasound of the lower extremity both are negative for deep venous thrombosis, VQ scan revealed low probability for PE Objective - Vital Signs Vital signs: Vital Signs Temp 98.0 F 07/30/18 07:18 Pulse 100 07/30/18 12:06 Resp 18 07/30/18 11:56 BP 124/82 07/30/18 07:18 Pulse Ox 88 L 07/30/18 11:27 Intake & Output 07/29/18 07/30/18 07/30/18 18:59 06:59 18:59 Intake Total 500 590 Balance 500 590 Weight 174.5 kg Intake: Oral 500 590 Other: Voiding Method Toilet # Voids 1 1 - Exam - Constitutional General appearance: morbidly obese - EENT Eyes: EOMI, PERRLA, poor dentition, scleral icterus, normal appearance Ears: bilateral: normal - Neck Neck: normal ROM Carotids: bilateral: upstroke normal, bruit absent Thyroid: bilateral: normal size - Respiratory Respiratory: bilateral: CTA, diminished (Very poor air entry), rales (Few basal crackles cannot be excluded), negative: dullness, rhonchi, wheezing, prolonged expiration - Cardiovascular Rhythm: regular Heart sounds: normal: S1, S2 - Gastrointestinal Very large ventral hernia General gastrointestinal: decreased bowel sounds, distended, normal bowel sounds - Integumentary Integumentary: normal turgor - Neurologic Neurologic: CNII-XII intact - Musculoskeletal Musculoskeletal: gait normal, generalized weakness, strength equal bilaterally - Psychiatric Psychiatric: A&O x's 3, appropriate affect, intact judgment & insight - Labs CBC & Chem 7: 07/30/18 07:03 07/30/18 07:03 Labs: Abnormal Lab Results - Last 24 Hours (Table) 07/29/18 07/29/18 07/30/18 Range/Units 16:36 20:32 07:03 RBC 5.92 H (4.30-5.90) m/uL Hct 62.1 H* (39.0-53.0) % MCV 104.8 H (80.0-100.0) fL MCHC 28.0 L (31.0-37.0) g/dL Plt Count 102 L (150-450) k/uL Chloride (98-107) mmol/L Carbon Dioxide (22-30) mmol/L BUN (9-20) mg/dL POC Glucose (mg/dL) 142 H 114 H (75-99) mg/dL 07/30/18 07/30/18 Range/Units 07:03 11:26 RBC (4.30-5.90) m/uL Hct (39.0-53.0) % MCV (80.0-100.0) fL MCHC (31.0-37.0) g/dL Plt Count (150-450) k/uL Chloride 97 L (98-107) mmol/L Carbon Dioxide 39 H (22-30) mmol/L BUN 21 H (9-20) mg/dL POC Glucose (mg/dL) 109 H (75-99) mg/dL Assessment and Plan Assessment: Acute on chronic hypoxic and hypercapnic failure Severe hypercapnia and tremors Pulmonary hypertension Severe COPD Obstructive sleep apnea Likely component of obesity hypoventilation syndrome Large ventral hernia 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
[2018-07-30 16:25] LABS: Glucose,Whole Blood 109 mg/dL (75-99)
[2018-07-30 20:53] LABS: Glucose,Whole Blood 82 mg/dL (75-99)
[2018-07-31] MEDS: IPRATROPIUM-ALBUTEROL 3 ML NEB INHALATION SCH ×4 (05:47→16:03)
[2018-07-31 06:18] VITALS: TEMP 98.1
[2018-07-31 06:56] LABS: Glucose,Whole Blood 87 mg/dL (75-99)
[2018-07-31] MEDS: INSULIN ASPART (NovoLOG) 100 UNIT/ML VIAL SQ SCH ×3 (07:27→17:21)
[2018-07-31] MEDS: BUDESONIDE 1 MG/2 ML NEBU INHALATION SCH (07:59)
[2018-07-31 08:12] VITALS: BP 136/77; RESP 14
[2018-07-31] MEDS: PATIENT'S OWN MED (Phentermine Hcl [Adipex-P] 37.5 MG) PO SCH (09:07)
[2018-07-31] MEDS: NICOTINE 14MG/24HR PATCH TRANSDERM SCH (09:08)
[2018-07-31] MEDS: ENOXAPARIN 40 MG/0.4 ML SYRINGE SQ SCH (09:08)
[2018-07-31] MEDS: buPROPion SR 150 MG TABLET.ER PO SCH (09:09)
[2018-07-31] MEDS: predniSONE 20 MG TAB PO SCH (09:09)
--- NOTE | 2018-07-31 10:31 | P.PN ---
Subjective Progress Note Date: 07/30/18 Interval history: 52-year-old morbidly obese and is being treated for COPD exacerbation ventral hernia although no surgery is being planned patient, patient does have ischemia right third fourth and fifth toes with moderate cyanosis. Patient has decreased pulses in that area. Patient is requiring 4 L of onset doesn't use any oxygen at home. 07/29/2018 Patient was pretty status improved patient wheezing improved remains on 4 L will taper tapered down steroids was switched to oral 07/30/2018 wearing BiPAP every night and with naps during the day. Maintaining low 90s on 2 L nasal cannula, 87-88% on room air at rest. Tremors improving. significant vascular insufficiency of bilateral legs, Dr. Reyes consulted with recommendations pending. Using BiPAP when sleeping, will need at discharge. Constitutional: Denied any fatigue denied any fever. Cardio vascular: denied any chest pain, palpitations Gastrointestinal denied any nausea vomiting Pulmonary: Does have shortness of breath Neurologic denied any new focal deficits All inpatient medications were reviewed and appropriate changes in these medications as dictated in the interval history and assessment and plan. Objective - Vital Signs Vital signs: Vital Signs Temp 99.0 F 07/30/18 15:00 Pulse 95 07/30/18 20:12 Resp 18 07/30/18 20:12 BP 107/69 07/30/18 15:00 Pulse Ox 92 L 07/30/18 15:00 Intake & Output 07/30/18 07/30/18 07/31/18 06:59 18:59 06:59 Intake Total 590 Balance 590 Weight 174.5 kg Intake: Oral 590 Other: Voiding Method Toilet # Voids 1 - Exam EXAMINATION: GENERAL: The patient is alert and oriented x3, not in any acute distress. Morbidly obese HEENT: Pupils are round and equally reacting to light. EOMI. No scleral icterus. No conjunctival pallor. Normocephalic, atraumatic. No pharyngeal erythema. No thyromegaly. Oral mucosa moist CARDIOVASCULAR: S1 and S2 present. Regular, No murmurs, rubs, or gallops. PULMONARy : Poor air entry , Extremely diminished, scattered rhonchi, fine bibasilar crackles with prolonged expiratory wheezing ABDOMEN: Distended, significant ventral hernia, possibly BS EXTREMITIES: No clubbing, or pedal edema. Cyanosis as mentioned above NEUROLOGICAL: Gross neurological examination did not reveal any focal deficits. SKIN: No rashes. - Labs CBC & Chem 7: 07/30/18 07:03 07/30/18 07:03 Labs: Abnormal Lab Results - Last 24 Hours (Table) 07/30/18 07/30/18 07/30/18 Range/Units 07:03 07:03 11:26 RBC 5.92 H (4.30-5.90) m/uL Hct 62.1 H* (39.0-53.0) % MCV 104.8 H (80.0-100.0) fL MCHC 28.0 L (31.0-37.0) g/dL Plt Count 102 L (150-450) k/uL Chloride 97 L (98-107) mmol/L Carbon Dioxide 39 H (22-30) mmol/L BUN 21 H (9-20) mg/dL POC Glucose (mg/dL) 109 H (75-99) mg/dL 07/30/18 Range/Units 16:24 RBC (4.30-5.90) m/uL Hct (39.0-53.0) % MCV (80.0-100.0) fL MCHC (31.0-37.0) g/dL Plt Count (150-450) k/uL Chloride (98-107) mmol/L Carbon Dioxide (22-30) mmol/L BUN (9-20) mg/dL POC Glucose (mg/dL) 109 H (75-99) mg/dL Assessment and Plan Assessment: -Acute hypercapnic respiratory failure: Secondary to COPD exacerbation-severe -Peripheral Vascular disease, vascular surgery recommendations pending -Large Ventral hernia: Further management as per general surgery -Hyperkalemia due to acute renal failure diuretic therapy, resolved. -Continued nicotine use: Counseling provided -Morbid obesity with possible right-sided heart failure, cor pulmonale and pulmonary hypertension and obstructive sleep apnea -Pulmonary hypertension Plan: Continue current medication regime ,monitoring and symptomatic treatment. Maintain nebulized bronchodilators, steroids. Dr. Reyes consulted, recommendations pending. Patient has required BiPAP every night. Patient to wear pulse ox all night long, attempting to qualify for BiPAP-needs sleep study outpatient. Patient presents with very large ventral hernia, eventual OR at a tertiary center pending,attempting to optimize pulmonary function .Social work consulted regarding social issues/potential rehab. Discharge planning in progress for tomorrow, discussed with RN/case management/director of social work. The impression and plan of care has been dictated as directed. : I performed a history and examination of this patient, discussed the same with the dictator. I agree with the dictator's note ,documented as a scribe. Any additional findings or plans will be noted.
[2018-07-31 11:47] LABS: Glucose,Whole Blood 88 mg/dL (75-99)
[2018-07-31 11:58] LABS: Anion Gap 2 mmol/L; Blood Urea Nitrogen 21 mg/dL (9-20); Calcium 9.3 mg/dL (8.4-10.2); Carbon Dioxide 40 mmol/L (22-30); Chloride 96 mmol/L (98-107); Glucose 87 mg/dL (74-99); Potassium 5.2 mmol/L (3.5-5.1); Sodium 138 mmol/L (137-145)
[2018-07-31 12:05] VITALS: PULSE 104
[2018-07-31 12:17] LABS: Hypochromasia Marked; MCH 30.3 pg (25.0-35.0); MCHC 29.5 g/dL (31.0-37.0); MCV 102.7 fL (80.0-100.0); Macrocytosis Moderate; Mean Platelet Volume 7.2; Platelet Count 116 k/uL (150-450); RBC 5.94 m/uL (4.30-5.90); RDW 15.8 % (11.5-15.5); WBC 7.7 k/uL (3.8-10.6)
[2018-07-31 13:21] LABS: Lymphocytes # (M) 0.77 k/uL (1.0-4.8); Monocytes # (M) 0.54 k/uL (0-1.0); Neutrophils # (M) 6.39 k/uL (1.3-7.7); Neutrophils % (M) 83 %; Nucleated Red Blood Cells 0 /100 WBC (0-0); Total Cells Counted 100
--- NOTE | 2018-07-31 13:36 | CONS ---
CONSULTATION This is a 52-year-old gentleman I was consulted for vascular evaluation. The patient has a large ventral abdominal hernia and he had this for many years and it has slowly increased in size. There is no history of abdominal pain. The patient has some history of bilateral foot swelling and some chronic skin changes involving the toes. He has been seen by Dr. Botello as an outpatient. PHYSICAL EXAMINATION: On examination, patient was seen in his room. Neck is supple. No lymphadenopathy. Chest has a bilateral rhonchi. First and second sounds normal. Abdomen is protuberant with large ventral hernia. No sign of obstruction. VASCULAR EXAMINATION: Brachial, radial pulses are present. Femorals are deep, 1+. Posterior dorsalis pedis is not palpable, but there is no ischemic ulceration noted. At this point, no venous stasis ulcer noted. CT of the abdomen showed the entire small bowel and mesentery has been herniated. The patient has had a venous ultrasound which was negative for DVT. At this point, there is no so evidence of any vascular intervention for vascular point of view. The patient can be followed in my office in about 2 weeks. MMODL / IJN: [id number] /
--- NOTE | 2018-07-31 14:30 | P.DS ---
Providers Date of admission: 07/29/18 11:45 Attending physician: Luis Alberto Rodríguez Consults: 07/27/18 18:05 Consult Physician Routine Consulting Provider: Christ Reyes Consult Reason/Comments: vascular insufficiency bilateral legs Do you want consulting provider notified?: Yes 07/28/18 00:52 Consult Physician Routine Consulting Provider: Federico Hernandez Consult Reason/Comments: copd Do you want consulting provider notified?: Yes Primary care physician: Junaid Dubon [facility] Course: 52-year-old morbidly obese and is being treated for COPD exacerbation ventral hernia although no surgery is being planned patient, patient does have ischemia right third fourth and fifth toes with moderate cyanosis. Patient has decreased pulses in that area. Patient is requiring 4 L of onset doesn't use any oxygen at home. 07/29/2018 Patient was pretty status improved patient wheezing improved remains on 4 L will taper tapered down steroids was switched to oral 07/30/2018 wearing BiPAP every night and with naps during the day. Maintaining low 90s on 2 L nasal cannula, 87-88% on room air at rest. Tremors improving. significant vascular insufficiency of bilateral legs, Dr. Reyes consulted with recommendations pending. Using BiPAP when sleeping, will need at discharge. 07/31/2018 Patient clinically doing well and patient will be discharged on weaning doses of steroids. Patient will use nystatin for intertrigo. Patient will is requiring oxygen and patient is being discharged on BiPAP on as-needed basis at nighttime. Patient will follow-up with vascular surgery for his peripheral vascular disease and the cyanosis of third fourth and fifth toes on the right side which actually improved now. And patient will will follow-up with the general surgery and a tertiary facility for his abdominal wall hernia. EXAMINATION: GENERAL: The patient is alert and oriented x3, not in any acute distress. Morbidly obese HEENT: Pupils are round and equally reacting to light. EOMI. No scleral icterus. No conjunctival pallor. Normocephalic, atraumatic. No pharyngeal erythema. No thyromegaly. Oral mucosa moist CARDIOVASCULAR: S1 and S2 present. Regular, No murmurs, rubs, or gallops. PULMONARy : Poor air entry , Extremely diminished, scattered rhonchi, fine bibasilar crackles with prolonged expiratory wheezing ABDOMEN: Distended, significant ventral hernia, good bowel sounds EXTREMITIES: No clubbing, or pedal edema. Cyanosis as mentioned above NEUROLOGICAL: Gross neurological examination did not reveal any focal deficits. SKIN: No rashes. Assessment and Plan Assessment: -Acute hypercapnic respiratory failure: Secondary to COPD exacerbation-severe -Peripheral Vascular disease, vascular surgery recommendations pending -Large Ventral hernia: Further management as per general surgery -Hyperkalemia due to acute renal failure diuretic therapy, resolved. -Continued nicotine use: Counseling provided -Morbid obesity with possible right-sided heart failure, cor pulmonale and pulmonary hypertension and obstructive sleep apnea -Pulmonary hypertension -Peripheral vascular disease leading to cyanosis of the toes as mentioned above patient will quit smoking. Patient Condition at Discharge: Stable Plan - Discharge Summary Discharge Rx Participant: No New Discharge Prescriptions: New Albuterol Inhaler [Ventolin Hfa Inhaler] 1 - 2 puff INHALATION Q6HR PRN #1 inhaler PRN Reason: Shortness Of Breath Or Wheezing Budesonide-Formot 160-4.5 Mcg [Symbicort 160-4.5 Mcg Inhaler] 2 puff INHALATION BID #1 inhaler Omeprazole [PriLOSEC] 40 mg PO -[facility] #14 capsule. predniSONE 10 mg PO DAILY #30 tab Tiotropium [place] [Spiriva] 1 cap INHALATION DAILY #1 device Nystatin 100,000 Unit/gm Powd [Mycostatin Powder] 1 applic TOPICAL BID #30 Continue buPROPion HCL [buPROPion HCL SR] 150 mg PO DAILY Phentermine HCl [Adipex-P] 37.5 mg PO DAILY Naproxen Sodium [Aleve] 220 mg PO DAILY Albuterol Sulfate [Proair Hfa] 2 puff INHALATION RT-Q6H Discontinued Triamterene-Hctz 37.5-25Mg [Maxzide 37.5-25] 1 tab PO DAILY Discharge Medication List Albuterol Sulfate [Proair Hfa] 2 puff INHALATION RT-Q6H 07/27/18 [History] Naproxen Sodium [Aleve] 220 mg PO DAILY 07/27/18 [History] Phentermine HCl [Adipex-P] 37.5 mg PO DAILY 07/27/18 [History] buPROPion HCL [buPROPion HCL SR] 150 mg PO DAILY 07/27/18 [History] Albuterol Inhaler [Ventolin Hfa Inhaler] 1 - 2 puff INHALATION Q6HR PRN #1 inhaler 07/31/18 [Rx] Budesonide-Formot 160-4.5 Mcg [Symbicort 160-4.5 Mcg Inhaler] 2 puff INHALATION BID #1 inhaler 07/31/18 [Rx] Nystatin 100,000 Unit/gm Powd [Mycostatin Powder] 1 applic TOPICAL BID #30 07/31 [Rx] Omeprazole [PriLOSEC] 40 mg PO AC-BRKFST #14 capsule. 07/31/18 [Rx] Tiotropium [place] [Spiriva] 1 cap INHALATION DAILY #1 device 07/31/18 [Rx] predniSONE 10 mg PO DAILY #30 tab 07/31/18 [Rx] Follow up Appointment(s)/Referral(s): Junaid Dubon MD [Primary Care Provider] - 08/07/18 12:00 pm [facility]Nurse [NON-STAFF] - Federico Hernandez MD [STAFF PHYSICIAN] - 08/14/18 11:30 am Christ Reyes MD [STAFF PHYSICIAN] - 08/12/18 10:00 am Discharge Disposition: HOME WITH HOME HEALTH SERVICES
--- NOTE | 2018-07-31 17:01 | P.PN ---
Subjective Progress Note Date: 07/31/18 Principal diagnosis: Hypercapnic hypoxic respiratory failure, altered mental status, tremors likely related to high CO2 level, severe morbid obesity, obesity hypoventilation, likely sleep disorder breathing and sleep apnea, hypertension hypertensive cardiovascular disease, and large ventral hernia 07/31/2018, patient seen eval examined during the rounds clinically patient has been doing better in terms of tremors as well as elevated CO2 count, patient has been on BiPAP machine, patient is being eval for possible discharge will arrange a BiPAP machine loaner until more definitive intervention like polysomnogram can be arranged outpatient setting, patient underwent nocturnal desaturation study found to have significant desaturation into 80s 07/30/2018, patient seen eval examined during the rounds clinically patient has been doing slightly better tremors have been noted to have improved patient has been using BiPAP machine each night and when necessary during the day, surgical services evaluating this patient, at this point time patient likely is being considered for supportive and conservative care with optimize aeration of medical therapy weight loss more optimal treatment for his sleep disorder breathing and sleep apnea and severe COPD and then reconsideration of surgery subsequently, urine medications reviewed care plan discussed with the staff as well as foster care case manager at length 07/29/2018, patient seen eval examined during the rounds clinically patient has been doing slightly better tremors have improved, patient has been on BiPAP throughout the night tolerated for almost 6 hours breathing more comfortably currently undergoing a back bronchodilator therapy, patient has been eval by surgical services further recommendations pending 52-year-old morbidly obese male who was seen eval reexamined on fourth floor with ongoing problems associated with shortness of breath patient has a very large anterior abdominal wall ventral hernia, surgery has been following this patient, this patient has a significant issues associated with erythrocytosis hypoxia and the sleepiness likely has sleep disorder breathing and sleep apnea does have a history of snoring patient has ongoing tremors intermittent confusion as well, review of the data revealed that patient has a hypoxic hypercapnic respiratory failure with CO2 of 67 pH was normal pO2 was only 54 on 4 L oxygen, white cell count is normal however hemoglobin is on the higher range of 19 and 65 hematocrit likely associated with bone marrow stimulation related chronic hypoxia, I have discussed with the staff to initiate patient on BiPAP 10 and 5 with supplemental oxygen to be used each night and when necessary during the day, his admitted chest x-ray revealed cardiomegaly interstitial edema and prominent interstitium, computed tomography scan of the abdomen revealed massive ventral hernia neck of the hernia is about 14 cm, [place] small bowel and mesentery has a herniated, with some portion of the colon , diffuse anasarca has been noted, no bowel obstruction or free air has been noted, some hepatocellular changes in the liver has been noted, and large gallbladder, computed tomography scan of the chest revealed pulmonary vasculature prominence likely pulmonary hypertension, centrilobular and paraseptal emphysema is noted, cardiomegaly has been noted along with evidence of coronary artery disease, no pulmonary embolism seen duplex ultrasound of the lower extremity both are negative for deep venous thrombosis, VQ scan revealed low probability for PE Objective - Vital Signs Vital signs: Vital Signs Temp 98.1 F 07/31/18 07:47 Pulse 104 H 07/31/18 12:04 Resp 14 07/31/18 16:00 BP 136/77 07/31/18 07:47 Pulse Ox 90 L 07/31/18 07:47 Intake & Output 07/30/18 07/31/18 07/31/18 18:59 06:59 18:59 Intake Total 200 Output Total 3 Balance 200 -3 Intake: Oral 200 Output: Stool 3 Other: Voiding Method Toilet Toilet # Voids 2 3 - Exam - Constitutional General appearance: morbidly obese - EENT Eyes: EOMI, PERRLA, poor dentition, scleral icterus, normal appearance Ears: bilateral: normal - Neck Neck: normal ROM Carotids: bilateral: upstroke normal, bruit absent Thyroid: bilateral: normal size - Respiratory Respiratory: bilateral: CTA, diminished (Very poor air entry), rales (Few basal crackles cannot be excluded), negative: dullness, rhonchi, wheezing, prolonged expiration - Cardiovascular Rhythm: regular Heart sounds: normal: S1, S2 - Gastrointestinal Very large ventral hernia General gastrointestinal: decreased bowel sounds, distended, normal bowel sounds - Integumentary Integumentary: normal turgor - Neurologic Neurologic: CNII-XII intact - Musculoskeletal Musculoskeletal: gait normal, generalized weakness, strength equal bilaterally - Psychiatric Psychiatric: A&O x's 3, appropriate affect, intact judgment & insight - Labs CBC & Chem 7: 07/31/18 11:18 07/31/18 11:18 Labs: Abnormal Lab Results - Last 24 Hours (Table) 07/31/18 07/31/18 Range/Units 11:18 11:18 RBC 5.94 H (4.30-5.90) m/uL Hgb 18.0 H (13.0-17.5) gm/dL Hct 61.0 H* (39.0-53.0) % MCV 102.7 H (80.0-100.0) fL MCHC 29.5 L (31.0-37.0) g/dL RDW 15.8 H (11.5-15.5) % Plt Count 116 L (150-450) k/uL Lymphocytes # (Manual) 0.77 L (1.0-4.8) k/uL Potassium 5.2 H (3.5-5.1) mmol/L Chloride 96 L (98-107) mmol/L Carbon Dioxide 40 H (22-30) mmol/L BUN 21 H (9-20) mg/dL Assessment and Plan Assessment: Acute on chronic hypoxic and hypercapnic failure Severe hypercapnia and tremors Pulmonary hypertension Severe COPD Obstructive sleep apnea Likely component of obesity hypoventilation syndrome Large ventral hernia 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
== END 2018-07-31 18:22 | disposition home or self-care (01) | DRG 190 ==
LOC: EC 09:09 → 4SSUR 15:14 → OBSVTOIN 07-29 11:45
PROVIDERS: ADMIT Hospitalist; ATTEND Hospitalist
PROC: 5A09457 Assistance with Respiratory Ventilation, 24-96 Consecutive Hours, Continuous Positive Airway Pressure (ICD-10-PCS; principal; 2018-07-28)
DX: J44.1 Chronic obstructive pulmonary disease with (acute) exacerbation (principal); J96.01 Acute respiratory failure with hypoxia; J96.02 Acute respiratory failure with hypercapnia; N17.9 Acute kidney failure, unspecified; E66.2 Morbid (severe) obesity with alveolar hypoventilation; Z68.43 Body mass index [BMI] 50.0-59.9, adult; I27.20 Pulmonary hypertension, unspecified; I11.0 Hypertensive heart disease with heart failure; I50.810 Right heart failure, unspecified; E87.5 Hyperkalemia; D75.1 Secondary polycythemia; F17.210 Nicotine dependence, cigarettes, uncomplicated; J45.998 Other asthma; K43.9 Ventral hernia without obstruction or gangrene; I73.9 Peripheral vascular disease, unspecified; G47.33 Obstructive sleep apnea (adult) (pediatric); R25.1 Tremor, unspecified; I25.10 Atherosclerotic heart disease of native coronary artery without angina pectoris; L30.4 Erythema intertrigo; R23.0 Cyanosis; R41.82 Altered mental status, unspecified; Z88.1 Allergy status to other antibiotic agents; Z90.49 Acquired absence of other specified parts of digestive tract; Z71.6 Tobacco abuse counseling; Z79.1 Long term (current) use of non-steroidal anti-inflammatories (NSAID); Z79.899 Other long term (current) drug therapy
CPT/HCPCS: 36415; 36600; 71046; 71275; 74177; 78582; 80048; 80053; 82550; 82553; 82805; 83880; 84484; 85025; 85027; 85379; 85610; 85730; 93005; 93306; 93970; 94640; 94660; 94760; 94762; 96360; 96361; 99285